=== PATIENT | female | born 1940 | race Caucasian/White ===

== ENCOUNTER → 2016-06-20 | Outpatient (REF) | payer MEDICARE ==
[~2016-06-20] MED LIST: /ALEN7SOL OR; ACET65TA OR; ALDA25TA2 OR; ALLO300T OR; CALCCHW12 OR; COLCHICINE; COLCHICINE OR; CORE12.5 OR; DARV100T OR; DEMA20TA OR; FLAG250T OR; FLAG500T OR; GENTAMYCIN IV; GLUC500T OR; HEPARIN IV; I CAPS OR; INSULANT SC; LASI40TA OR; LEVA250T OR; LISI20TA5 OR; LOTRIMIN; OMEP20TA7 OR; PAXI20TA OR; PLAV75TA2 OR; SALINE FLUSH IV; SLOWTAB OR; SYNT125T OR; VANCOMYCIN IV; VITAMIN D50000 UNT OR; [UNRECOGNIZED DRUG - OTHER]
[2016-06-20 18:29] LABS: ALBUMIN 3.6 GM/DL (3.2-5.2); ALBUMIN/GLOBULIN RATIO 1.03 (1.00-1.93); ALKALINE PHOSPHATASE 116 U/L (45-117); ALT/SGPT 19 U/L (12-78); ANION GAP 11 MEQ/L (8-16); AST/SGOT 29 U/L (15-37); BILIRUBIN,TOTAL 0.5 MG/DL (0.2-1.0); BLOOD UREA NITROGEN 16 MG/DL (7-18); CALCIUM LEVEL 8.7 MG/DL (8.8-10.2); CARBON DIOXIDE LEVEL 27 MEQ/L (21-32); CHLORIDE LEVEL 103 MEQ/L (98-107); CREATININE FOR GFR 0.95 MG/DL (0.55-1.02); GLOMERULAR FILTRATION RATE > 60.0 (>39); GLUCOSE, FASTING 143 MG/DL (83-110); POTASSIUM SERUM 3.9 MEQ/L (3.5-5.1); SODIUM LEVEL 141 MEQ/L (136-145); T UPTAKE 33 % (30-39); THYROXINE (T4) 7.4 UG/DL (4.5-12.0); TOTAL PROTEIN 7.1 GM/DL (6.4-8.2)
== END ==
LOC: M SFHCLERA 14:11
PROVIDERS: ATTEND Family Medicine
DX: I10 Essential (primary) hypertension (principal); E11.21 Type 2 diabetes mellitus with diabetic nephropathy; E03.9 Hypothyroidism, unspecified; E55.9 Vitamin D deficiency, unspecified
CPT/HCPCS: 80053; 82652; 83036; 84436; 84443; 84479; G0463

== ENCOUNTER → 2016-06-26 | Outpatient (CLI) | payer MEDICARE ==
[2016-06-26 18:09] LABS: INR 0.96
== END ==
LOC: M LRY 12:43
PROVIDERS: ATTEND Physician Assistant Surgical
DX: M19.012 Primary osteoarthritis, left shoulder (principal); Z79.01 Long term (current) use of anticoagulants

== ENCOUNTER → 2016-07-05 | Outpatient (CLI) | payer MEDICARE ==
[~2016-07-05] MED LIST changes: +CONRAY-43 43% 50ML VIAL (Q9960) As Ordered ONE; +LIDOCAINE 1% MDV 20ML VIAL As Ordered ONE
--- NOTE | 2016-07-05 10:43 | REP ---
CT ARTHROGRAM LEFT SHOULDER: CT arthrogram left shoulder performed in the axial plane, following left shoulder arthrogram procedure. Sagittal and coronal oblique reconstruction images are also performed. The injected contrast is seen in the glenohumeral joint with no communication with the subacromial or subdeltoid bursae. There is no evidence of rotator cuff tendon tear. There are moderate hypertrophic degenerative changes of the acromioclavicular joint. There is an old healed fracture of the proximal humerus. There is moderately severe spurring diffusely of the humeral head. There is moderate diffuse chondromalacia at the glenohumeral joint. There appears to be a partial tear of the superior labrum. Biceps tendon is seen inserting on to the biceps labral complex. There is diffuse significant blunting of the anterior labrum and inferior labrum suggesting prior tears. In the superior aspect of the joint, just above the superior labrum there appears to be a joint body measuring 6 mm in diameter. Incidental note is made of an oval lobulated nodular opacity in the right lung, upper lobe, measuring 10 x 5 mm. IMPRESSION: No evidence of rotator cuff tear. Old healed fracture of the proximal humerus with moderately severe spurring of the humeral head. Moderate chondromalacia at the glenohumeral joint. 6 mm superior joint body. There appears to be a partial tear of the superior labrum. There is significant blunting of the anterior labrum and the inferior labrum compatible with prior tears. Oval lobulated nodular opacity in the right lung measuring 10 x [address] of the chest with and without contrast to further evaluate. Signed by Sal Valera MD 07/05/2016 12:43 P
--- NOTE | 2016-07-07 11:47 | REP ---
LEFT SHOULDER ARTHROGRAM: The procedure was performed under the direct supervision of Dr. Valera. The benefits and risks including but not limited to pain, infection, bleeding and anaphylaxis were explained to the patient and informed consent was obtained. The left glenohumeral joint space was localized using fluoroscopic guidance. The skin was prepped and draped in a sterile fashion. 1% lidocaine was used as a local anesthetic. Using fluoroscopic guidance, a 22-gauge needle was inserted and advanced to the joint. 11 mL of Conray 43 was injected. The needle was removed and the patient was taken to CT scan for post procedural imaging. The patient tolerated the procedure well and there were immediate complications. 6 second of fluoroscopy time was utilized for this procedure. Reviewed by CLIFFORD Higginbotham 07/07/2016 12:52 PEdited and Signed by Sal Valera MD 07/07/2016 01:15 P
== END ==
LOC: M RADPRO 08:37
PROVIDERS: ATTEND Physician Assistant Surgical
DX: M94.212 Chondromalacia, left shoulder (principal); M75.82 Other shoulder lesions, left shoulder; R91.8 Other nonspecific abnormal finding of lung field; Z87.81 Personal history of (healed) traumatic fracture; M19.012 Primary osteoarthritis, left shoulder; Z88.8 Allergy status to other drugs, medicaments and biological substances; Z88.1 Allergy status to other antibiotic agents; Z88.0 Allergy status to penicillin; Z88.5 Allergy status to narcotic agent; Z88.2 Allergy status to sulfonamides
CPT/HCPCS: 23350; 73201; 77002; Q9960

== ENCOUNTER → 2016-07-19 | Outpatient (CLI) | payer MEDICARE ==
[~2016-07-19] MED LIST changes: +ALDA25TA2; +ALLO100T; +ALLO100T PO; +BUPR100T3; +BUPR50TA PO; +CALC1CAP31; +CALCD50TA; +CHLO125TA; +CHLO125TA PO; +CLOB0.0548 TOP; +CLOTR1CR TOP; -CONRAY-43 43% 50ML VIAL (Q9960) As Ordered ONE; +FLON1SPR; +FURO20TA2; +FURO20TA2 PO; +INSULANT; +LEVO150T7; -LIDOCAINE 1% MDV 20ML VIAL As Ordered ONE; +LUTECAP2 PO; +MAVI4TAB; +NITR0.4S14 SL; +OSCA200T PO; +PANT40TA2; +PANT40TA2 PO; +PARO20TA3 PO; +PLAV75TA38; +PLAV75TA38 PO; +[UNRECOGNIZED DRUG - CODE]; +[UNRECOGNIZED DRUG - CODE] PO
[2016-07-20 12:17] LABS: CALCIUM LEVEL 10.5 MG/DL (8.8-10.2); CREATININE FOR GFR 1.23 MG/DL (0.55-1.02); GLOMERULAR FILTRATION RATE 45.3 (>39)
[2016-07-20 13:09] LABS: POTASSIUM SERUM 6.9 MEQ/L (3.5-5.1)
== END ==
LOC: M LRY 16:21
PROVIDERS: ATTEND Internal Medicine Cardiovascular Disease
DX: I10 Essential (primary) hypertension (principal)

== ENCOUNTER 2016-07-21 09:49 | Observation (INO) | payer MEDICARE ==
[~2016-07-21] VITALS: Ht 157.5 cm; Wt 103.0 kg
[~2016-07-21 09:49] MED LIST changes: -ALDA25TA2; -ALLO100T; -ALLO100T PO; -BUPR100T3; -BUPR50TA PO; -CALC1CAP31; -CALCD50TA; -CHLO125TA; -CHLO125TA PO; -CLOB0.0548 TOP; -CLOTR1CR TOP; -FLON1SPR; -FURO20TA2; -FURO20TA2 PO; -INSULANT; -LEVO150T7; -LUTECAP2 PO; -MAVI4TAB; -NITR0.4S14 SL; -OSCA200T PO; -PANT40TA2; -PANT40TA2 PO; -PARO20TA3 PO; -PLAV75TA38; -PLAV75TA38 PO; -[UNRECOGNIZED DRUG - CODE]; -[UNRECOGNIZED DRUG - CODE] PO
[2016-07-21] MEDS ORDERED: BUPR100T3 (10:08)
[2016-07-21] MEDS ORDERED: PANT40TA2 (10:08)
[2016-07-21] MEDS ORDERED: [UNRECOGNIZED DRUG - CODE] (10:08)
[2016-07-21] MEDS ORDERED: LEVO150T7 (10:08)
[2016-07-21] MEDS ORDERED: PLAV75TA38 (10:08)
[2016-07-21] MEDS ORDERED: MAVI4TAB (10:08)
[2016-07-21] MEDS ORDERED: CALCD50TA (10:08)
[2016-07-21] MEDS ORDERED: CALC1CAP31 (10:08)
[2016-07-21] MEDS ORDERED: FURO20TA2 (10:08)
[2016-07-21] MEDS ORDERED: CHLO125TA (10:08)
[2016-07-21] MEDS ORDERED: ALLO100T (10:08)
[2016-07-21] MEDS ORDERED: ALDA25TA2 (10:08)
[2016-07-21] MEDS ORDERED: INSULANT (10:08)
[2016-07-21 10:42] LABS: BASO % 0.3 % (0.0-1.0); EOS # 0.1 K/mm3 (0.0-0.50); EOS % 0.9 % (0.0-3.0); LARGE UNSTAINED CELL # 0.1 K/mm3 (0.0-0.4); LARGE UNSTAINED CELL % 0.8 % (0.0-4.0); LYMPH # 2.3 K/mm3 (1.5-4.5); LYMPH % 14.8 % (24.0-44.0); MEAN CORPUSCULAR HEMOGLOBIN 29.9 pg (27.0-33.0); MEAN CORPUSCULAR HGB CONC 32.3 g/dl (32.0-36.5); MEAN CORPUSCULAR VOLUME 92.7 fl (80.0-96.0); MONO # 0.5 K/mm3 (0.0-0.8); MONO % 3.3 % (0.0-5.0); NEUTROPHILS # 11.5 K/mm3 (1.8-7.7); NEUTROPHILS % 79.8 % (36.0-66.0); PLATELET COUNT, AUTOMATED 335 k/mm3 (150-450); RED CELL DISTRIBUTION WIDTH 14.1 % (11.5-14.5); WHITE BLOOD COUNT 14.4 K/mm3 (4.0-10.0)
[2016-07-21 11:04] LABS: CALCIUM LEVEL 9.5 MG/DL (8.8-10.2); CREATININE FOR GFR 1.36 MG/DL (0.55-1.02); GLOMERULAR FILTRATION RATE 40.4 (>39); POTASSIUM SERUM 3.8 MEQ/L (3.5-5.1)
[2016-07-21] MEDS ORDERED: NS 1,000 ML IV SCH (11:45)
[2016-07-21] MEDS: NS 1,000 ML IV SCH (13:05)
[2016-07-21] MEDS ORDERED: ONDANSETRON 4MG/2ML VIAL (J2405) IV PRN (13:15)
[2016-07-21] MEDS ORDERED: ACETAMINOPHEN TAB 650MG DOSE (2X325MG) PO PRN (13:15)
--- NOTE | 2016-07-21 13:59 | REP ---
LEFT SHOULDER SERIES: Three view of the left shoulder are performed. There is an old healed fracture of the proximal humerus. Two calcific bodies are seen just above the humeral head, probably representing joint bodies, the larger of the two measuring 18 x 7 mm. There is moderate narrowing at the acromioclavicular joint with mild spurring. IMPRESSION: Old healed fracture proximal left humerus with no definite acute fracture or dislocation. Degenerative changes with what appears to be two joint bodies just above the humeral head. Signed by Sal Valera MD 07/21/2016 05:39 P
[2016-07-21 14:05] LABS: CALCIUM OXALATE CRYSTALS SMALL
[2016-07-21] MEDS ORDERED: PLAV75TA38 PO (14:52)
[2016-07-21] MEDS ORDERED: FURO20TA2 PO (14:52)
[2016-07-21] MEDS ORDERED: OSCA200T PO (14:52)
[2016-07-21] MEDS ORDERED: PARO20TA3 PO (14:52)
[2016-07-21] MEDS ORDERED: NITR0.4S14 SL (14:52)
[2016-07-21] MEDS ORDERED: ALLO100T PO (14:52)
[2016-07-21] MEDS ORDERED: BUPR50TA PO (14:52)
[2016-07-21] MEDS ORDERED: CHLO125TA PO (14:52)
[2016-07-21] MEDS ORDERED: INSULANT SC (14:52)
[2016-07-21] MEDS ORDERED: [UNRECOGNIZED DRUG - CODE] PO (14:52)
[2016-07-21] MEDS ORDERED: FLON1SPR (14:52)
[2016-07-21] MEDS ORDERED: LUTECAP2 PO (14:52)
[2016-07-21] MEDS ORDERED: PANT40TA2 PO (14:52)
[2016-07-21] MEDS ORDERED: CLOTR1CR TOP (14:52)
[2016-07-21] MEDS ORDERED: CLOB0.0548 TOP (14:52)
--- NOTE | 2016-07-21 15:41 | HPE ---
DATE OF ADMISSION: CHEESE COOKER: Dr. Farzad Allred SCRAP HOOKER: Dr. Larose INPATIENT HOSPITALIST ATTENDING: Dr. Maco Farrar CHIEF COMPLAINT: Abnormal blood test. HISTORY OF PRESENT ILLNESS: A 76-year-old female with a history of type 2 diabetes, hypertension, coronary artery disease (CAD), stent, pacemaker, ventriculoseptal defect, small, transesophageal echocardiogram (THELMA), November 2009, CAD, catheterization 1991, 75-90% right coronary artery (RCA) with collaterals, less than 50% circumflex. Nuclear stress test November 2011, no perfusion abnormalities, ejection fraction (EF) 62%, hypothyroidism, hyperlipidemia, type 2 diabetes with microalbuminuria, nephropathy, gout, hypertension, DDDR pacer/2003, replaced battery October 2009, gastroesophageal reflux disease (GERD), osteoporosis, normal DEXA scan April 2014, meralgia paresthetica, degenerative joint disease of the lumbar spine, subacute bacterial endocarditis due to enterococcus November 2009, Clostridium (C) difficile colitis November 2009, acute renal failure on chronic kidney disease, stage III, secondary to vancomycin, gentamicin, and diuretics, adenomatous colonic polyp, urine incontinence, suspected obstructive sleep apnea with abnormal nocturnal oxymetry December 2012, 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 Zayas, radical vulvectomy May [address] Moncada. Was sent to the emergency room by Dr. Allred due to abnormal blood tests. She was found to have a potassium of 6.9, GFR 45.3. In the emergency room (ER) she was found to have lactic acidosis with lactic acid of 4.0 and white count of 14.4. Patient otherwise denies any dysuria, urgency, frequency, cough, fever, chills, shortness of breath, cough productive of sputum. Denies any vaginal discharge, diarrhea, constipation. She has chronic fungal infection in the genital area. Otherwise has been in her usual state of health. Patient had a recent injection of steroids to the left shoulder due to severe osteoarthritis on Sunday. States that has felt significantly improved. Able to rotate at the shoulder, flex, extend, abduct without much difficulty and no fevers or chills at home. Hospitalist service was called to admit for observation for evaluation of her lactic acidosis. PAST MEDICAL HISTORY: 1. Small ventriculoseptal defect, transesophageal echocardiogram (THELMA), November 2009, 2. CAD. Catheterization in 1991. 75-95% RCA with collaterals, less than 50% circumflex. Non-stress test November 2011: No perfusion abnormalities. EF 62%. 3. Hypothyroidism. 4. Type 2 diabetes with microalbuminuria. 5. Nephropathy. 6. Hyperlipidemia. 7. Gout. 8. Hypertension. 9. DDDR pacer/2003, replaced battery October 2009. 10. GERD. 11. Osteopenia. Normal DEXA April 2014. 12. Meralgia paresthetica. 13. Degenerative disc disease (DDD, lumbar spine. 14. Subacute bacterial endocarditis due to enterococcus November 2009. 15. C. difficile colitis November 2009. 16. Chronic kidney disease, stage III, with acute renal failure for vancomycin, gentamicin, diuretics November 2009. 17. Colon polyps with adenoma November 2011. 18. Urine incontinence. 19. CKD, stage III. 20. Suspected obstructive sleep apnea (ABBE) with abnormal nocturnal oxymetry December 2012. 21. Vulvar squamous cell CA secondary to Lichen sclerosus. 22. Macular degeneration, [facility], Dr. Zayas. 23. Radical vulvectomy [address] Moncada. ALLERGIES: GENTAMICIN, acute renal failure. VANCOMYCIN, acute renal failure, BIAXIN, hives. PENICILLIN, hives. NONSTEROIDAL ANTI-INFLAMMATORY DRUGS (NSAIDS), ASPIRIN, hives. MEVACOR, ZOCOR, shortness of breath and vertigo. CODEINE, confusion. SULFA, hives. AVELOX, tremors, constipation. ASPIRIN, anaphylaxis. PAST SURGICAL HISTORY: 1. Hysterectomy in 1979. 2. Cholecystectomy, 1969. 3. Appendectomy. 4. Bilateral cataract surgery. 5. Pacemaker July 2003. 6. Adenomatous polyp 2011. 7. December 2013, vulvar cancer resection, Dr. Mnocada, November 2011. 8. Right atrial pacer lead replaced, [facility], December 2012. 9. Colonoscopy 2013. FAMILY HISTORY: Father at 72, Alzheimer's. Mother at 70, CAD. Siblings: Diabetes, hypertension. Daughter , esophageal cancer. SOCIAL HISTORY: Lives alone. Former smoker. Quit in 2002. Previously smoked a pack a day. Social alcohol use. Occasional wine. 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 One dog. Has a son in [place] who assists in her activities of daily living. HOME MEDICATIONS: - Chlorthalidone 25 mg half tablet daily - spironolactone 25 mg half tablet daily - Wellbutrin 100 mg at bedtime - Calcitriol 0.25 Sunday, Sunday, Sunday - nitroglycerine 0.4 as needed - trandolapril 4 mg half tablet daily - Refresh 0.5% both eyes as needed - Plavix 75 daily - allopurinol 100 daily - Colchicine 0.6 daily - clobetasol 0.05 as needed - I-Caps daily - cinnamon 500 twice a day - levothyroxine 50 mcg daily - paroxetine 40 daily - Lasix 20 twice a day, 7 a.m., 4 p.m. - Protonix 40 daily - Lantus insulin 14 units at bedtime - calcium/vitamin D 600 one tablet twice a day - Tylenol 650 twice a day as needed REVIEW OF SYSTEMS: Per history of present illness (HPI). A 12-point system otherwise negative. PHYSICAL EXAMINATION: VITAL SIGNS: Temperature 99.7, pulse 108, sinus rhythm, respiratory rate 18, blood pressure 182/88, 93% on room air. GENERAL: Patient is awake, alert, oriented times three, answering questions appropriately. HEENT Anicteric sclerae. No jaundice or icterus. Missing teeth in the upper jaw. Poor dentition. Moist mucous membranes. No jugular venous distention (JVD), thyromegaly. LUNGS: Clear to auscultation. No wheezes, rales, or rhonchi. HEART: S1, S2, sinus tachycardia. ABDOMEN: Soft, obese, nontender, nondistended, positive bowel sounds. Patient has whitish discoloration around the groin, malodorous, whitish discharge, erythematous area in the medial thigh. EXTREMITIES: No pitting edema. Left shoulder: Full range of motion. No effusion, erythema, or tenderness. White count 14.4, hemoglobin 16, hematocrit 49, platelet count 335, 79% neutrophils. Sodium 133, potassium 3.8, chloride 91, bicarbonate 29, BUN 39, creatinine 1.36, glucose 230, lactic acid 4.0, calcium 9.5, magnesium 2.9. Total CK 105, MB fraction 3.9, troponin less than 0.02. C-reactive protein 6.67. Urine culture on July 21 pending. IMAGING STUDIES: Chest x-ray: No active disease. Cardiomegaly. Pacemaker. Shoulder x-ray in the left: Old healed fracture of proximal left humerus, degenerative disc disease. No acute fracture or dislocation. ASSESSMENT AND PLAN: This is a 76-year-old female with a history of chronic kidney disease, stage III, coronary artery disease (CAD), pacemaker, degenerative joint disease, hypertension, small ventriculoseptal defect, hypothyroidism, hyperlipidemia, gout, reflux, meralgia paresthetica, subacute endocarditis due to enterococcus, Clostridium (C) difficile colitis, acute on chronic colonic adenomatous polyp, urine incontinence, suspected obstructive sleep apnea (ABBE), vulvar squamous cell carcinoma (CA) secondary to Lichen sclerosis, macular degeneration, follow with [facility], Dr. Zayas, radical vulvectomy in 2016, presented to the emergency room due to abnormal blood tests. Patient was found to have a potassium of 6.9 as outpatient and was found to have lactic acidosis of 4.0. Patient is admitted for observation under hospitalist service for evaluation of lactic acidosis. IMPRESSION: 1. Lactic acidosis, rule out acute infection. Patient had a recent instrumentation of the left shoulder with intra-articular steroids. X-ray is unremarkable. Sedimentation rate is normal. C-reactive protein (CRP) slightly elevated. Will continue to monitor for now for symptoms of pain and effusion. Examination is unremarkable at this time. Check urinalysis (UA), urine, culture and sensitivity (C and S), two sets of blood cultures. No empirical antibiotics. Hold the patient's diuretics and continue with intravenous (IV) fluid hydration times two liters gently with 75 mL per hour. Recheck lactic acid serially. 2. Chronic kidney disease, stage III, currently at baseline. 3. Hyperkalemia, resolved. Holding off on patient's spironolactone and angiotensin-converting enzyme (FILOMENA) inhibitor, trandolapril. 4. History of CAD. Continue on Plavix. Previously allergy to aspirin. 5. Type 2 diabetes. Continue consistent-carbohydrate diet. Renal diet. Continue on Lantus insulin. Change to Levemir 25 units at bedtime and obtain an A1c level. Insulin sliding scale with coverage and hypoglycemic protocol. 6. Small ventriculoseptal defect on previous transesophageal echocardiogram (THELMA) November 2009. 7. Chronic hypothyroidism. Continue home dose of Synthroid. 8. Hyperlipidemia, stable. Currently not taking Crestor. 9. History of vulvar squamous cell CA with fungal infection, topical cream. 10. History of pacemaker, stable. Currently with tachycardia. Trial of IV fluids, gentle hydration 75 mL an hour. 11. History of adenomatous colonic polyps. No complaints of bowel changes. 12. Macular degeneration. Outpatient followup with Dr. Zayas at [facility]. 13. Chronic kidney disease, at baseline. Avoid nephrotoxins. Renally dose all medications. 14. History of chronic degenerative disc disease, osteopenia, and meralgia paresthetica. Stable. 15. Microalbuminuria and nephropathy, chronic. Outpatient followup with nephrology. 16. Hypothyroidism. Resume home dose of Synthroid. 17. Gout. Continue allopurinol. 18. Deep vein thrombosis (DVT) prophylaxis with renal dosing of Lovenox.
[2016-07-21 15:45] VITALS: BP 131/67
[2016-07-21] MEDS: HumaLOG INSULIN (NovoLOG) PER UNIT SC SCH (17:58)
[2016-07-21] MEDS ORDERED: GLUCOSE 4 GM CHEW TABLET PO PRN (18:00)
[2016-07-21] MEDS ORDERED: DEXTROSE 50% 50 ML SYRINGE IV PRN (18:00)
[2016-07-21] MEDS ORDERED: GLUCAGON FOR INJ 1 MG VIAL (J1610) SC PRN (18:00)
[2016-07-21 20:55] VITALS: BP 139/78
[2016-07-21] MEDS ORDERED: HumaLOG INSULIN (NovoLOG) PER UNIT SC SCH (21:00)
[2016-07-21] MEDS ORDERED: MICONAZOLE 2 % POWDER (DESENEX) TOP SCH (21:00)
[2016-07-21] MEDS: NYSTATIN 100,000 UNITS/GM TOPICAL PWD 15 GM TOP SCH (21:19)
[2016-07-22] MEDS: NS 1,000 ML IV SCH (05:20)
[2016-07-22 06:05] LABS: BASO % 0.4 % (0.0-1.0); EOS # 0.1 K/mm3 (0.0-0.50); EOS % 1.3 % (0.0-3.0); LARGE UNSTAINED CELL # 0.2 K/mm3 (0.0-0.4); LARGE UNSTAINED CELL % 1.6 % (0.0-4.0); LYMPH % 27.4 % (24.0-44.0); MEAN CORPUSCULAR HEMOGLOBIN 29.6 pg (27.0-33.0); MEAN CORPUSCULAR HGB CONC 31.6 g/dl (32.0-36.5); MEAN CORPUSCULAR VOLUME 93.4 fl (80.0-96.0); MONO # 0.6 K/mm3 (0.0-0.8); NEUTROPHILS # 6.7 K/mm3 (1.8-7.7); NEUTROPHILS % 63.4 % (36.0-66.0); PLATELET COUNT, AUTOMATED 260 k/mm3 (150-450); RED CELL DISTRIBUTION WIDTH 14.1 % (11.5-14.5); WHITE BLOOD COUNT 10.5 K/mm3 (4.0-10.0)
[2016-07-22 06:14] LABS: CALCIUM LEVEL 9.3 MG/DL (8.8-10.2); CREATININE FOR GFR 1.04 MG/DL (0.55-1.02); POTASSIUM SERUM 3.7 MEQ/L (3.5-5.1)
[2016-07-22 06:15] VITALS: BP 155/88
[2016-07-22 06:43] LABS: ERYTHROCYTE SEDIMENTATION RATE 10 mm/hr (0-30)
[2016-07-22] MEDS: NYSTATIN 100,000 UNITS/GM TOPICAL PWD 15 GM TOP SCH (08:15)
[2016-07-22] MEDS: HumaLOG INSULIN (NovoLOG) PER UNIT SC SCH ×2 (08:15→12:35)
--- NOTE | 2016-07-22 08:27 | ECGEPIP ---
Stationary ECG Study [facility] - ED Test Date: 2016-07-21 Pat Name: JOSE M FRAUSTO Department: Room: - Gender: F Plating Inspector: johana : 1940 Requested By: JOSEFA Maza Order Number: [id number] Reading MD: Monica Rosenberg Measurements Intervals [place] Rate: 106 P: -27 IA: 166 QRS: 217 QRSD: 172 T: 3 QT: 348 QTc: 462 Interpretive Statements SINUS TACHYCARDIA LEFT ATRIAL ENLARGEMENT MARKED RIGHT AXIS DEVIATION RIGHT BUNDLE BRANCH BLOCK INFERIOR MYOCARDIAL INFARCTION, OF INDETERMINATE AGE, CLINICAL CORRELATION ANTEROSEPTAL MYOCARDIAL INFARCTION, OF INDETERMINATE AGE, CLINICAL CORRELATION COMPARISON 10/12/11 Electronically Signed On 07-22-2016 8:27:01 EDT by Monica Rosenberg
--- NOTE | 2016-07-22 08:27 | ECGEPIP ---
Stationary ECG Study [facility] - ED Test Date: 2016-07-21 Pat Name: JOSE M FRAUSTO Department: Room: - Gender: F Call Out Operator: rn : 1940 Requested By: JOSEFA Maza Order Number: [id number] Reading MD: Monica Rosenberg Measurements Intervals [place] Rate: 105 P: 233 CT: 168 QRS: 210 QRSD: 161 T: 3 QT: 340 QTc: 451 Interpretive Statements SINUS TACHYCARDIA POSSIBLE LEFT ATRIAL ENLARGEMENT MARKED RIGHT AXIS DEVIATION RIGHT BUNDLE BRANCH BLOCK INFERIOR MYOCARDIAL INFARCTION, OF INDETERMINATE AGE ANTEROSEPTAL MYOCARDIAL INFARCTION, OF INDETERMINATE AGE CLINICAL CORRELATION SIMILAR 10:46 Electronically Signed On 07-22-2016 8:27:33 EDT by Monica Rosenberg
[2016-07-22] MEDS ORDERED: buPROPion 100 MG TAB PO SCH (09:00)
[2016-07-22] MEDS ORDERED: CLOPIDOGREL 75 MG TAB PO SCH (09:00)
[2016-07-22] MEDS ORDERED: ALLOPURINOL 100 MG TAB PO SCH (09:00)
[2016-07-22] MEDS ORDERED: PARoxetine 20 MG TAB PO SCH (09:00)
[2016-07-22] MEDS ORDERED: PANTOPRAZOLE 40MG TAB (PROTONIX) PO SCH (09:00)
--- NOTE | 2016-07-22 11:53 | DS.PDOC ---
Discharge Summary General Date of Admission Jul 21, 2016 at 13:05 Date of Discharge Jul 22, 2016 Discharge Summary PROCEDURES PERFORMED DURING STAY: [None]. DISCHARGE DIAGNOSES: 1. Hyperkalemia. 2. Lactic acidosis 3. VSD Refer to H&P from yesterday for full extensive medical history CHIEF COMPLAINT: Lactic Acidosis. HOSPITAL COURSE: Patient admitted for lactic acidosis, sent by pediatric rn for hyperkalemia. Lactic acidosis resolved, cultures negative to date, no obvious source/signs/symptoms of infection. As per documentation patient taking aldactone and ACI at home, although not appearing in medication reconciliation. These medications have been discontinued pending further evaluation by her PCP and film coater. DISCHARGE MEDICATIONS: Continue home medications, stop spironolactone and trandolapril. ALLERGIES: Please see below. PHYSICAL EXAMINATION ON DISCHARGE: VITAL SIGNS: Please see below. GENERAL: NAD HEENT: NC/AT, EOMI, PERRL, edentulous NECK: supple CARDIOVASCULAR EXAMINATION: +S1S2, RRR RESPIRATORY EXAMINATION: CTA B/L ABDOMINAL EXAMINATION: soft, NT, +BS EXTREMITIES: no edema NEUROLOGICAL EXAMINATION: no gross focal deficits PSYCHIATRIC EXAMINATION: AAOx3 LABORATORY DATA: Please see below. ACTIVITY: [As tolerated]. DIET: low fat low cholesterol 2 gram sodium carb consistent DISCHARGE INSTRUCTIONS: 1. FOllow up with PCP in 3-5 days. 2. Follow up with nephrology Dr. Larose in 3-5 days. ITEMS TO FOLLOWUP ON ON OUTPATIENT: 1. Repeat potassium on follow up with medical provider. DISCHARGE CONDITION: [Stable]. TIME SPENT ON DISCHARGE: Less than 30 minutes. Vital Signs/I&Os Vital Signs Date Time Temp Pulse Resp B/P Pulse Ox O2 Delivery O2 Flow Rate FiO2 07/22/16 06:15 97.7 90 18 155/88 96 Room Air I&O- Last 24 Hours up to 6 AM 07/22/16 06:00 Intake Total 1623 ml Output Total 700 ml Balance 923 ml Laboratory Data Labs 24H Laboratory Tests 2 07/21/16 11:54: Urine Amorphous Sediment , Urine Appearance HAZY, Urine Color YELLOW, Urine pH 6.0, Urine Specific [place] 1.009, Urine Protein NEGATIVE, Urine Glucose (UA) NEGATIVE, Urine Ketones NEGATIVE, Urine Urobilinogen 0.2, Urine Bilirubin NEGATIVE, Urine Leukocyte Esterase 3+H, Urine Bacteria (Auto) NEGATIVE, Urine Blood NEGATIVE, Urine Calcium Carbonate Cryst(Auto) , Urine Calcium Oxalate Cryst (Auto) SMALL, Urine Calcium Phosphate Casandra (Auto) , Urine Cellular Casts , Urine Cystine Crystals , Urine Granular Casts (Auto) , Urine Hyaline Casts ( Auto) 4, Urine Leucine Crystals , Urine Mucus (Auto) SMALL, Urine Nitrite NEGATIVE, Urine Oval Fat Bodies (Auto) , Urine RBC (Auto) 2, Urine Renal Epithelial Cells , Urine Sperm (Auto) , Urine Squamous Epithelial Cells 1, Urine Transitional Epithelial Cells , Urine Trichomonas (Auto) , Urine Triple Phosphate Cryst (Auto) , Urine Tyrosine Crystals , Urine Uric Acid Crystals ( Auto) , Urine WBC (Auto) 14H, Urine Waxy Casts (Auto) , Urine Yeast-Like Cells ( Auto) 07/21/16 16:53: Bedside Glucose (Misc Panel) 221H 07/21/16 18:15: Creatine Kinase MB 3.0, Creatine Kinase MB Relative Index 3.03, Lactic Acid Level 2.5*H, Total Creatine Kinase 99, Troponin I < 0.02 07/21/16 20:57: Bedside Glucose (Misc Panel) 197H 07/21/16 22:44: Lactic Acid Followup at 4 Hours 1.0 07/22/16 05:47: Anion Gap 8, White Blood Count 10.5H, Red Blood Count 4.97, Hemoglobin 14.7, Hematocrit 46.4, Mean Corpuscular Volume 93.4, Mean Corpuscular Hemoglobin 29.6 , Mean Corpuscular Hemoglobin Concent 31.6L, Red Cell Distribution Width 14.1, Platelet Count 260, Neutrophils (%) (Auto) 63.4, Lymphocytes (%) (Auto) 27.4, Monocytes (%) (Auto) 6.0H, Eosinophils (%) (Auto) 1.3, Basophils (%) (Auto) 0.4 , Neutrophils # (Auto) 6.7, Lymphocytes # (Auto) 3.0, Monocytes # (Auto) 0.6, Eosinophils # (Auto) 0.1, Basophils # (Auto) 0.0, C-Reactive Protein, Quantitative 2.25H, Blood Urea Nitrogen 34H, Creatinine 1.04H, Sodium Level 134L , Potassium Level 3.7, Chloride Level 98, Carbon Dioxide Level 28, Calcium Level 9.3, Erythrocyte Sedimentation Rate 10, Glomerular Filtration Rate 55.0, Large Unclassified Cells # 0.2, Large Unclassified Cells % 1.6 CBC/BMP Laboratory Tests 07/22/16 05:47 Calcium Level 9.3, Red Blood Count 4.97, Mean Corpuscular Volume 93.4, Mean Corpuscular Hemoglobin 29.6, Mean Corpuscular Hemoglobin Concent 31.6 L, Red Cell Distribution Width 14.1, Neutrophils (%) (Auto) 63.4, Lymphocytes (%) (Auto ) 27.4, Monocytes (%) (Auto) 6.0 H, Eosinophils (%) (Auto) 1.3, Basophils (%) ( Auto) 0.4, Neutrophils # (Auto) 6.7, Lymphocytes # (Auto) 3.0, Monocytes # (Auto ) 0.6, Eosinophils # (Auto) 0.1, Basophils # (Auto) 0.0 FSBS Laboratory Tests Test 07/21/16 16:53 07/21/16 20:57 Range/Units Bedside Glucose (Misc Panel) 221 197 83-110 MG/DL Microbiology Microbiology 07/21/16 Blood Culture, Received Pending 07/21/16 Urine Culture, Received Pending Discharge Medications Scheduled (Flonase Allergy Relief) 50 Mcg/Act Spr 50 MCG NA DAILY (Reported) (Lutein Vision Blend) 1 Cap Cap 2 CAP PO BID (Reported) Allopurinol (Allopurinol) 100 Mg Tab 100 MG PO DAILY (Reported) Bupropion HCl (Bupropion HCl) 50 Mg Halftab 100 MG PO DAILY (Reported) Calcium/Vitamin D (Oscal 500/200 D-3 500-200 mg-Unit) 1 Tab Tab 1 TAB PO BID ( Reported) Chlorthalidone (Chlorthalidone) 12.5 Mg Halftab 12.5 MG PO DAILY (Reported) Clopidogrel Bisulfate (Plavix) 75 Mg Tab 75 MG PO DAILY (Reported) Furosemide (Furosemide) 20 Mg Tab 20 MG PO BID (Reported) Insulin Glargine (Lantus) 1 Units/0.01 Ml Susp 25 UNITS SC QHS (Reported) Levothyroxine Sodium (Unithroid Direct) 150 Mcg Tab 150 MCG PO ACB (Reported) Nitroglycerin (Nitroglycerin) 0.4 Mg Sub 0.4 MG SL NITRO (Reported) Pantoprazole Sodium (Pantoprazole Sodium) 40 Mg Tab 40 MG PO DAILY (Reported) Paroxetine (Paroxetine HCl) 20 Mg Tab 20 MG PO DAILY (Reported) Scheduled PRN Clobetasol Propionate (Clobetasol Propionate E) 0.05 % Cre 1 DOSE TOP BIDP PRN PRN SEE LABEL COMMENTS (Reported) per patient md wants her to apply around the vulva daily Clotrimazole (Clotrimazole) 1 % Cre 1 % TOP BIDP PRN PRN SEE LABEL COMMENTS ( Reported) per patient md wants her to apply around the vulva daily Allergies Coded Allergies: Clarithromycin (Verified Allergy, Severe, THROAT SWELLING, 07/21/16) Aspirin (Verified Allergy, Intermediate, HIVES, 07/21/16) Penicillins (Verified Allergy, Intermediate, HIVES, 07/21/16) Penicillins Cross Reactors (Verified Allergy, Intermediate, HIVES, 07/21/16) Sulfa Drugs (Verified Allergy, Intermediate, MOUTH RASH, 07/21/16) Sulfa Drugs Cross Reactors (Verified Allergy, Intermediate, MOUTH RASH, 07/21/16) Codeine (Verified Adverse Reaction, Mild, VOMITING, 07/21/16) HARRIS LAMBERT MD Jul 22, 2016 11:53
[2016-07-24] MEDS ORDERED: CALCITRIOL 0.25 MCG CAP (S0169) PO SCH (09:00)
--- NOTE | 2016-07-24 10:15 | REP ---
PORTABLE CHEST: AP portable view of the chest is performed and compared to a prior study of 10/12/2011. There is cardiomegaly. There is no acute infiltrate. There is mild bibasilar fibrotic scarring which is stable. There is mild calcification of the thoracic aorta. The mediastinal silhouette is unchanged. Left dual lead pacemaker is again noted. IMPRESSION: Cardiomegaly. No acute infiltrate or pulmonary edema. Signed by Sal Valera MD 07/24/2016 04:34 P
== END 2016-07-22 13:56 | disposition home or self-care (01) ==
LOC: M ED 10:22 → M ED INP 13:05 → M MSPAV 15:41
PROVIDERS: ADMIT General Practice; ATTEND Internal Medicine
DX: E87.5 Hyperkalemia (principal); E87.2 Acidosis; E11.21 Type 2 diabetes mellitus with diabetic nephropathy; Z79.4 Long term (current) use of insulin; I10 Essential (primary) hypertension; I25.10 Atherosclerotic heart disease of native coronary artery without angina pectoris; G47.30 Sleep apnea, unspecified; Q21.0 Ventricular septal defect; M10.9 Gout, unspecified; E03.9 Hypothyroidism, unspecified; E78.5 Hyperlipidemia, unspecified; K21.9 Gastro-esophageal reflux disease without esophagitis; Z87.891 Personal history of nicotine dependence; N18.3 Chronic kidney disease, stage 3 (moderate); Z79.899 Other long term (current) drug therapy; Z98.61 Coronary angioplasty status; Z88.0 Allergy status to penicillin; Z88.1 Allergy status to other antibiotic agents; Z88.3 Allergy status to other anti-infective agents; Z88.8 Allergy status to other drugs, medicaments and biological substances
CPT/HCPCS: 36415; 71010; 73030; 80048; 81001; 82550; 82553; 83605; 83735; 84484; 85025; 85652; 86140; 87040; 87088; 87186; 93005; 93041; 99285; G0378

== ENCOUNTER → 2016-07-27 | Outpatient (CLI) | payer MEDICARE ==
[~2016-07-27] MED LIST changes: +ALDA25TA2; +ALLO100T; +ALLO100T PO; +BUPR100T3; +BUPR50TA PO; +CALC1CAP31; +CALCD50TA; +CHLO125TA; +CHLO125TA PO; +CLOB0.0548 TOP; +CLOTR1CR TOP; +DOXY-278 PO; +FLON1SPR; +FURO20TA2; +FURO20TA2 PO; +INSULANT; +LEVO150T7; +LUTECAP2 PO; +MAVI4TAB; +NITR0.4S14 SL; +NYST100024 TOP; +OSCA200T PO; +PANT40TA2; +PANT40TA2 PO; +PARO20TA3 PO; +PLAV75TA38; +PLAV75TA38 PO; +[UNRECOGNIZED DRUG - CODE]; +[UNRECOGNIZED DRUG - CODE] PO
--- NOTE | 2016-07-27 15:22 | REPMRS ---
Patient History The patient states she has not had a clinical breast exam in over a year. Patient is postmenopausal and has history of other cancer at age 40. Family history of ovarian cancer in mother. Digital Woman Screen Mammo: July 27, 2016 - Exam #: [id number] Bilateral CC and MLO view(s) were taken. Technologist: Aracely Nicole Technologist Prior study comparison: December 18, 2014, digital woman screen mammo performed at [facility] to [facility]. December 17, 2013, digital woman screen mammo performed at [facility] to [facility]. FINDINGS: There are scattered fibroglandular densities. There has been no change in the appearance of the mammogram from the prior studies. There is a mild amount of residual fibroglandular tissue which is fairly symmetric. There is no interval development of dominant mass, architectural distortion, or clustered microcalcification suggestive of malignancy. ASSESSMENT: BI-RADS/ACR category 1 mammogram. Negative. Recommendation Routine screening mammogram in 1 year (for women over age 40). This mammogram was interpreted with the aid of an FDA-approved computer-aided dectection system. Electronically Signed By: Sal Valera MD 07/27/16 [id number]
== END ==
LOC: M WHC 14:20
PROVIDERS: ATTEND Family Medicine
DX: Z12.31 Encounter for screening mammogram for malignant neoplasm of breast (principal)

== ENCOUNTER 2016-07-28 17:07 | Inpatient (IN) | payer MEDICARE ==
[~2016-07-28] VITALS: Ht 157.5 cm; Wt 88.6 kg
[~2016-07-28 17:07] MED LIST changes: -DOXY-278 PO; -NYST100024 TOP
[2016-07-28] MEDS ORDERED: NS 500 ML IV ONE (18:30)
[2016-07-28 18:56] LABS: BASO % 0.2 % (0.0-1.0); EOS # 0.2 K/mm3 (0.0-0.50); EOS % 1.1 % (0.0-3.0); LARGE UNSTAINED CELL # 0.1 K/mm3 (0.0-0.4); LARGE UNSTAINED CELL % 0.5 % (0.0-4.0); LYMPH # 1.9 K/mm3 (1.5-4.5); LYMPH % 10.9 % (24.0-44.0); MEAN CORPUSCULAR HEMOGLOBIN 29.9 pg (27.0-33.0); MEAN CORPUSCULAR VOLUME 90.7 fl (80.0-96.0); MONO # 0.7 K/mm3 (0.0-0.8); MONO % 4.4 % (0.0-5.0); NEUTROPHILS # 13.5 K/mm3 (1.8-7.7); NEUTROPHILS % 82.9 % (36.0-66.0); PLATELET COUNT, AUTOMATED 311 k/mm3 (150-450); RED CELL DISTRIBUTION WIDTH 13.9 % (11.5-14.5); WHITE BLOOD COUNT 16.3 K/mm3 (4.0-10.0)
[2016-07-28 19:10] LABS: ERYTHROCYTE SEDIMENTATION RATE 25 mm/hr (0-30)
[2016-07-28 19:25] LABS: ALBUMIN 3.5 GM/DL (3.2-5.2); ALKALINE PHOSPHATASE 120 U/L (45-117); ALT/SGPT 33 U/L (12-78); ANION GAP 11 MEQ/L (8-16); AST/SGOT 31 U/L (15-37); BILIRUBIN,DIRECT 0.1 MG/DL (0.0-0.2); BILIRUBIN,TOTAL 0.5 MG/DL (0.2-1.0); BLOOD UREA NITROGEN 33 MG/DL (7-18); CALCIUM LEVEL 9.2 MG/DL (8.8-10.2); CARBON DIOXIDE LEVEL 26 MEQ/L (21-32); CHLORIDE LEVEL 98 MEQ/L (98-107); CREATININE FOR GFR 1.21 MG/DL (0.55-1.02); GLOMERULAR FILTRATION RATE 46.2 (>39); GLUCOSE, FASTING 218 MG/DL (83-110); POTASSIUM SERUM 3.3 MEQ/L (3.5-5.1); SODIUM LEVEL 135 MEQ/L (136-145)
[2016-07-28] MEDS ORDERED: POTASSIUM CHLORIDE 10 MEQ SR TABLET PO ONE (20:00)
[2016-07-28 21:02] LABS: MAGNESIUM LEVEL 1.8 MG/DL (1.8-2.4)
[2016-07-28] MEDS ORDERED: CEFTAROLINE FOSAMIL 200 MG in D5W 50 ML IV SCH (21:30)
[2016-07-28] MEDS ORDERED: SODIUM CHLORIDE 0.9% 1000 ML IV ONE (21:45)
[2016-07-28] MEDS ORDERED: GLUCAGON FOR INJ 1 MG VIAL (J1610) SC PRN (22:00)
[2016-07-28] MEDS ORDERED: CLOTRIMAZOLE 1% TOPICAL CREAM 30GM TOP PRN (22:00)
[2016-07-28] MEDS ORDERED: DEXTROSE 50% 50 ML SYRINGE IV PRN (22:00)
[2016-07-28] MEDS ORDERED: CLOBETASOL PROPIONATE EMOLLIENT 0.05% CR 60 GM TOP PRN (22:00)
[2016-07-28] MEDS ORDERED: GLUCOSE 4 GM CHEW TABLET PO PRN (22:00)
[2016-07-28] MEDS ORDERED: ISOVUE-370 76% 100ML VIAL (Q9967) As Ordered ONE (22:41)
--- NOTE | 2016-07-28 23:10 | REPUSA ---
CT of the chest Clinical statement: pulmonary nodule. Technique: Multiple axial CT images were obtained from the thoracic inlet through the upper abdomen b efore and after a bolus administration of nonionic intravenous contrast. Coronal and sagittal reconst ructions were also obtained. No comparison is available. Findings: The pulmonary arteries are well-opacified with contrast, with no intraluminal filling defec ts to suggest embolism. The thoracic aorta is unremarkable. Thyroid gland is within normal limits. Th ere is no thoracic lymphadenopathy. There are no pericardial or pleural effusions. The lungs are deanna r. There is a benign calcified granuloma in the anterior right upper lobe. There is minimal scarring in the lateral left lower lobe. Emphysematous bleb is seen in the superior segment of the left lower lobe. There is a large hiatal hernia. Limited imaging of the upper abdomen is unremarkable. There are no suspicious osseous lesions. Impression: 1. No acute infiltrates. No clinically significant pulmonary nodules. 2. Minimal scarring in the left lower lobe. Emphysematous bleb in the left lower lobe. 3. Large hiatal hernia.
[2016-07-29] VITALS (9 sets, daily range): BP systolic 129–159; BP diastolic 68–80
[2016-07-29] MEDS: LEVEMIR (INSULIN DETEMIR) 1 UNITS/0.01ML SC SCH ×2 (01:06→20:14)
[2016-07-29] MEDS: NYSTATIN 100,000 UNITS/GM TOPICAL PWD 15 GM TOP SCH ×3 (01:14→20:14)
[2016-07-29] MEDS: CEFTAROLINE FOSAMIL 400 MG in D5W MINI-BAG PLUS 50 ML IV SCH ×2 (01:15→12:29)
--- NOTE | 2016-07-29 03:20 | HPE ---
DATE OF ADMISSION: 07/28/2016 SUBJECTIVE: This is a 76-year-old female with history of sick sinus syndrome status post pacemaker, suspected obstructive sleep apnea (ABBE), vulvar cancer status post surgery, who was sent in from primary care provider's (PCP's) office for abnormal lactic acid level 5.6 and persistent leukocytosis 14.8 earlier today. The patient was recently admitted and discharged from 07/21-07/22 also for lactic acidosis and hyperkalemia. At that time, no source of infection was identified and her leukocytosis improved. Since discharge, states that she is still "beat and tired all the time." States that at baseline she has had shortness of breath for approximately 20, 30 years, but in the last 2 weeks noticed that her shortness of breath worsened with walking. Normally is able to walk from her house to the mailbox which is probably more than 100 feet without shortness of breath, but in the last 2 weeks noticed that she would get winded doing the same amount of distance. Symptoms will resolve immediately with rest. Denies any chest pain, palpitations, chest discomfort or paroxysmal nocturnal dyspnea, pillow orthopnea, leg swelling. Actually endorses 7-pound weight loss due to being healthier with her diet. Denies cough, fevers, chills, night sweats. Does endorse feeling weak, lightheadedness, but no syncopal episode. She is unable to recall the last time she felt lightheadedness. Of note, the patient was previously planned for a stress test this week with cardiology; however, the patient and her friend decided to not pursue with the stress test because she claimed that she recently had a steroid injection to her left arm last week and does not want more medication injected into her body. In the emergency department (ED), was given 500 mL bolus, potassium chloride times one. PAST MEDICAL HISTORY: 1. Sick sinus syndrome status post pacemaker. 2. Murmur secondary to moderate/severe tricuspid regurgitation. 3. Suspected ABBE, though the patient declined further workup because states that her dog would likely not allow her to keep the mask on her face and states that when she gets apneic during her events her dog always wakes her up from the event. 4. Type 2 diabetes. 5. Diabetic nephropathy. 6. Vulvar malignancy. 7. Chronic kidney disease (CKD) stage III. 8. Hypothyroidism. 9. Gout. 10. Hypercholesterolemia. 11. Vitamin D deficiency. 12. Depression. 13. Obesity. 14. Ventriculoseptal defect. 15. Hypertensive heart disease. 16. Coronary artery disease (CAD), nonobstructive. 17. Diastolic congestive heart failure. Echocardiogram from October 2014 showed mild degenerative changes of mitral and aortic valvular apparatus without functional valvular abnormality. Mild concentric left ventricular hypertrophy (LVH) with hyperkinetic wall motion. Inferior vena cava (IVC) size with slightly reduced collapse suggestive of mild elevated CVP. Right heart chamber sizes and estimated pulmonary artery pressure increased. 18. Gastroesophageal reflux disease (GERD). 19. Osteopenia. 20. Degenerative disc disease. 21. Clostridium (C) difficile colitis. 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 23. Urinary incontinence. 24. Macular degeneration. PAST SURGICAL HISTORY: 1. Pacemaker implant, [employer] dual chamber. 2. Appendectomy. 3. Cholecystectomy. 4. Total hysterectomy. 5. Cataract surgery. 6. Toe surgery. 7. Cardiac catheterization. 8. Colonoscopy. 9. Vulvar cancer resection with Dr. Henao. HOME MEDICATIONS: - allopurinol 100 mg by mouth daily - Wellbutrin 100 mg by mouth daily - [place] 500/200 one tablet by mouth twice a day - chlorthalidone 12.5 mg by mouth daily - clobetasol one dose topically twice a day as needed - Plavix 75 mg by mouth daily - clotrimazole 1% topically twice a day - Flonase 50 mcg inhaled daily - Lasix 20 mg by mouth daily - Lantus 25 units subcutaneously nightly - lutein vision blend two capsules twice a day - nitroglycerin 0.4 sublingually as needed - Protonix 40 mg by mouth daily - Paxil 20 mg by mouth daily - calcitriol 0.25 mcg Sunday-Sunday ALLERGIES: CLARITHROMYCIN, throat swelling; ASPIRIN, hives; PENICILLIN, hives; SULFA, mouth thrush; CODEINE, vomiting. FAMILY HISTORY: Mother from heart disease in her 70s. Father from complications from Alzheimer's. Other siblings with diabetes, hypertension. One daughter from esophageal cancer. SOCIAL HISTORY: Patient is an ex-smoker, quit 2002, used to smoke, had a 20 pack-year. Drinks a glass of wine maybe once a month. No drug use. Currently lives at home by herself with one dog. She never traveled outside of the state. Used to work as a direct care staff manager supply. No exposure to asbestos, tuberculosis she is aware of. She is independent of all her daily activities. REVIEW OF SYSTEMS: CONSTITUTIONAL: Denies fevers, chills, rigors, weight changes. HEENT: Denies headaches, lightheadedness, dizziness, blurry vision, difficulty with speech and swallow. Eyes: History of macular degeneration. CARDIOVASCULAR: As above. PULMONARY: As above. GASTROINTESTINAL: Denies hematochezia, melena, or hematemesis, nausea, vomiting , diarrhea, constipation. GENITOURINARY: Positive for status post surgery for vulvar cancer. She has urinary incontinence. She has worsening pain and swelling by her vulvar region. Apparently, there was a discussion for referral to wound care in the past. MUSCULOSKELETAL: No bone, muscle, joint pain. NEUROLOGICAL: No paralysis, paresthesia, headaches. ENDOCRINE: Positive for diabetes and thyroid disease. LYMPHATICS: No lumps, bumps, or swelling anywhere in neck, axilla, or groin. HEMATOLOGY: No abnormal bleeding or bruising. PHYSICAL EXAMINATION: VITAL SIGNS: Blood pressure 148/92, heart rate 110, pulse oximetry 93% on room air, temperature 97.4, respiration rate 18. GENERAL: Patient was sitting in bed, comfortable, no acute distress, alert, awake, oriented times three, pleasant and cooperative, obese appearing. HEENT: Normocephalic, atraumatic. Moist oral mucosa. Lower portion with patient's own teeth, but some missing teeth and upper portion is edentulous. No thrush or lesions appreciated. Eyes: Extraocular movements intact. Pupils equal and reactive to light. NECK: Supple. Large. Could not appreciate jugular venous distention (JVD) or lymphadenopathy secondary to large neck size. CHEST: Symmetric chest rise. No accessory muscle use. Increased AP diameter. Left chest with palpable pacemaker. She does have a lot of excessive tissue to fully appreciate the pacemaker. HEART: Mildly tachycardic, but regular sounding. She has a 2-3 out of 6 systolic murmur in the left second intercostal border. Did not radiate to the carotids. LUNGS: Clear to auscultation bilaterally, but somewhat distant sounding. ABDOMEN: Obese, nontender, nondistended. Could not appreciate organomegaly secondary to body habitus. GENITOURINARY: Her skin appears thinning by her groin region with a foul odor. Appears to have some questionable purulence versus nystatin ointment applied. She is tender to palpation in her groin region. There is some area of redness and swelling. EXTREMITIES: No pedal edema. Pedal pulses present bilaterally. SKIN: She had some abrasion reportedly from her dog scratching her, but no significant area and tenderness. She has some ecchymotic changes as well. NEUROLOGIC: No focal deficits appreciated. Strength 5/5 in all extremities. PSYCHIATRIC: Pleasant, cooperative, talkative. LABORATORY DATA: WBC 16.3, hemoglobin 15.2, hematocrit 46, platelets 311, neutrophils 82.9. Sodium 135, potassium 3.3, chloride 98, carbon dioxide 26, BUN 33, creatinine 1.21, the patient baseline CKD III, fasting glucose 218, lactic acid 2.5, this is improved compared to last outside which was in the 5 range. Calcium 9.2, magnesium 1.8. Liver profile shows alkaline phosphatase 120, CK 97, TRP 2.14. EKG shows sinus tachycardia, ventricular rate of 109 with right bundle branch block. QTc 569. First-degree AV block. Old inferior KS. Urinalysis showed cloudy appearance, 1+ protein, 2+ leukocyte esterase, WBCs 22, RBCs 5, bacteria 2. IMPRESSION AND PLAN: Ms. Talavera is a 76-year-old female who was sent in from primary care provider's (PCP's) office for leukocytosis and elevated lactic acid level. Upon further questioning, the patient admits that she has had episodes of shortness of breath on exertion in the last 2 weeks. 1. Dyspnea on exertion. Etiology unclear. Possible cause includes cardiac versus pulmonary hypertension from her unwilling to have further investigation regarding her obstructive sleep apnea (ABBE) versus infection and/or other. She will be admitted for further workup and monitoring. At this time, she does not appear to be overloaded. Have requested repeat echocardiogram as it appears that the last one she had was 2 years ago. The patient admits to having hypoxic episode where her dog wakes her up. Therefore, the patient will be placed on ABBE protocol. Monitor her closely on telemetry. Trend cardiac enzymes. She is status post pacemaker and her pacemaker reportedly was interrogated last month. 2. Lactic acidosis with leukocytosis. Etiology for this currently unclear. Due to her shortness of breath symptom, we will check a CT chest to further evaluate for possible underlying infectious cause. There were no signs of infectious appreciated on her lung exam. She is morbidly obese and it is difficult to fully assess her lung examination. On examination today, she has very tender and red groin. It is possible this could be also the possible site of infection. The patient will be empirically started on antibiotic coverage. She is allergic to multiple medications. She is now on empirically with Teflaro. Will followup with blood work. Repeat lactic acid and complete blood count (CBC). Culture was not obtained because of diffuse nature of her location, any culture obtained will be likely contaminant. The groin area is recommended to be kept dry and clean. Recommend against giving clobetasol to her groin region as the area is already very thin and it can worsen her skin. 3. Hypokalemia. Likely secondary to diuretic use. Potassium has been repleted. Will repeat level in the morning. Will hold off from giving her standing dose at this time as she had a history of hyperkalemia in the past. 4. Weakness. Etiology unclear. It could be secondary to her underlying infection and/or cardiac, pulmonary disease. Will monitor her closely in the progressive care unit (PCU). Check orthostatic vital signs. Monitor repeat cardiac markers. 5. Chronic kidney disease (CKD). Baseline renal function is 3. We have requested CT with contrast to further evaluate for cause of her underlying infection. She also incidentally was found to have a nodule and CT will also help to pick this up as well. Because of her CKD, the patient will be given an intravenous (IV) fluid bolus tonight to try and help flush out her contrast afterward. 6. Sick sinus syndrome. She is status post pacemaker and pacer was interrogated last month. 7. Diastolic heart failure. Currently appears it is compensated. Echocardiogram will be repeated. Continue current home dose chlorthalidone and Lasix. 8. Suspected ABBE. The patient will be on ABBE protocol and oxygen at nighttime. 9. Type 2 diabetes. She will be placed on insulin sliding scale. 10. Obesity. Body mass index (BMI) 38. Will continue to complicate medical management. 11. History of coronary artery disease (CAD) status post catheterization. She is allergic to aspirin. She is on Plavix. Not on statin or beta luis alberto, reason unclear. 12. Secondary hyperparathyroidism. Follows with Dr. Larose outpatient. She is on calcitriol Sunday-Sunday. 13. Depression/anxiety. Continue Paxil and Wellbutrin. 14. Hypothyroidism. Continue home dose levothyroxine. 15. Hypertensive heart disease. Continue chlorthalidone, Lasix as mentioned. 16. Vulvar cancer. She is status post surgery and follows with Dr. Call every 3 months. 17. Gout. Continue allopurinol. 18. Deep venous thrombosis (DVT) prophylaxis. Sequential compression devices (SCDs), thromboembolism deterrent stockings (TEDS) and heparin. DISPOSITION: Due to the patient's condition, we expect her stay to be greater than two midnights. My preceptor for this patient encounter was Dr. Arielle Arteaga. The preceptor was physically present in the building during the encounter and was fully available as needed. All aspects of the patient interview, examination, medical decision making process, and medical care plan development were reviewed and approved by the preceptor. The preceptor is aware and concurs with the plan as stated in the body of this note and will attest to such by his/her co-signature. MIMI
[2016-07-29 04:25] LABS: BASO % 0.2 % (0.0-1.0); EOS # 0.2 K/mm3 (0.0-0.50); EOS % 1.2 % (0.0-3.0); LARGE UNSTAINED CELL # 0.2 K/mm3 (0.0-0.4); LARGE UNSTAINED CELL % 1.5 % (0.0-4.0); LYMPH # 2.7 K/mm3 (1.5-4.5); LYMPH % 21.7 % (24.0-44.0); MEAN CORPUSCULAR HEMOGLOBIN 29.5 pg (27.0-33.0); MEAN CORPUSCULAR HGB CONC 31.8 g/dl (32.0-36.5); MEAN CORPUSCULAR VOLUME 92.8 fl (80.0-96.0); MONO # 0.6 K/mm3 (0.0-0.8); MONO % 4.7 % (0.0-5.0); NEUTROPHILS # 8.7 K/mm3 (1.8-7.7); NEUTROPHILS % 70.7 % (36.0-66.0); PLATELET COUNT, AUTOMATED 285 k/mm3 (150-450); RED CELL DISTRIBUTION WIDTH 13.9 % (11.5-14.5); WHITE BLOOD COUNT 12.4 K/mm3 (4.0-10.0)
[2016-07-29 04:36] LABS: ALBUMIN 2.9 GM/DL (3.2-5.2); ANION GAP 8 MEQ/L (8-16); BLOOD UREA NITROGEN 27 MG/DL (7-18); CARBON DIOXIDE LEVEL 28 MEQ/L (21-32); CHLORIDE LEVEL 101 MEQ/L (98-107); CREATININE FOR GFR 1.04 MG/DL (0.55-1.02); GLUCOSE, FASTING 166 MG/DL (83-110); MAGNESIUM LEVEL 1.8 MG/DL (1.8-2.4); PHOSPHORUS LEVEL 2.3 MG/DL (2.5-4.9); POTASSIUM SERUM 3.1 MEQ/L (3.5-5.1); SODIUM LEVEL 137 MEQ/L (136-145)
[2016-07-29] MEDS ORDERED: PREVNAR 13 VACCINE SYRINGE (CPT CODE:90670) IM SCH (06:15)
[2016-07-29] MEDS: HEPARIN SOD (PORCINE) 5000 UNITS/ML VIAL SC SCH ×3 (06:40→20:15)
[2016-07-29] MEDS: LEVOTHYROXINE 0.15 MG TAB (150 MCG) PO SCH (06:41)
[2016-07-29] MEDS: CLOPIDOGREL 75 MG TAB PO SCH (08:12)
[2016-07-29] MEDS: FUROSEMIDE 20 MG TAB PO SCH (08:12)
[2016-07-29] MEDS: PARoxetine 20 MG TAB PO SCH (08:12)
[2016-07-29] MEDS: ALLOPURINOL 100 MG TAB PO SCH (08:12)
[2016-07-29] MEDS: HumaLOG INSULIN (NovoLOG) PER UNIT SC SCH ×4 (08:12→20:05)
[2016-07-29] MEDS: PANTOPRAZOLE 40MG TAB (PROTONIX) PO SCH (08:13)
[2016-07-29] MEDS ORDERED: POTASSIUM CHLORIDE 10 MEQ SR TABLET PO ONE (09:00)
[2016-07-29] MEDS: buPROPion 100 MG TAB PO SCH (09:48)
[2016-07-29] MEDS: FLUTICASONE PROP 0.05% NASAL SPRAY 16 GM (FLONASE) SCH (09:49)
[2016-07-29] MEDS: CHLORTHALIDONE 12.5MG PER 1/2 TABLET PO SCH (09:49)
--- NOTE | 2016-07-29 14:39 | IPN ---
DATE: 07/29/2016 SUBJECTIVE: The patient is seen and examined in the room today. The patient stated she is feeling much better than yesterday. The patient has started cleaning out her groin area and was on Nystatin powder and the patient has InterDry between the groin skin folds. The patient stated those help her out significantly. OBJECTIVE: VITAL SIGNS: Temperature 96.9. Pulse 87. Respirations 18. Blood pressure 141/75. Pulse oximetry 97% in room air. GENERAL: No signs of acute distress. Alert and oriented times three. HEENT: Normocephalic, atraumatic. Extraocular movements grossly intact. CARDIOVASCULAR: Positive S1, S2. Positive systolic murmur. Regular rate. LUNGS: Clear to auscultation bilaterally, but distant lung sounds due to body habitus. ABDOMEN: Morbidly obese. Soft. Nontender. Nondistended. : Near the groin area exam, the patient did show some skin maceration, but no foul smell can be appreciated at the time of examination. EXTREMITIES: No edema. No cyanosis. LABORATORY DATA: WBC 12.4, hemoglobin 14.1, hematocrit 44.3 and platelet count is 285. Sodium 137, potassium 3.1, chloride 101, carbon dioxide 28, BUN 27, creatinine 1.04, GFR 55, lactic acid 1.6, fasting glucose 166, calcium 8, phosphorus 2.3, total CK 70, troponin less than 0.02. C-reactive protein 1.86. Albumin 2.9. MICROBIOLOGY: Blood culture pending times two sets. ASSESSMENT: 1. Lactic acidosis. 2. Sick sinus syndrome status post pacemaker. 3. Moderate to severe tricuspid regurgitation. 4. Obstructive sleep apnea. 5. Type 2 diabetes. 6. Diabetic neuropathy. 7. History of vulvar malignancy. 8. Stage III chronic kidney disease. 9. Hypothyroidism. 10. Gout. 11. Hypercholesterolemia. 12. Vitamin D deficiency. 13. Depression. 14. Ventriculoseptal defect. 15. Hypertensive heart disease. 16. History of coronary artery disease. 17. Diastolic congestive heart failure. 18. Gastroesophageal reflux disease. 19. Osteopenia. 20. History of Clostridium difficile colitis. 21. History of Enterococcus endocarditis. 22. Sepsis from UTI and/or groin cellulitis PLAN: The patient is on empiric antibiotic. The patient is on IV support. Her lactic acid and CRP are improving. The patient has acute on chronic kidney injury that is improving with IV fluid. The patient did have significant cardiac history of valvular disease. The patient is better to monitor on the progressive care unit (PCU) and the patient is on obstructive sleep apnea protocol. The patient has thromboembolic deterrent stockings (TEDS), sequential compression device and heparin. MTDD
[2016-07-30] VITALS: BP 157/76
[2016-07-30] MEDS: CEFTAROLINE FOSAMIL 400 MG in D5W MINI-BAG PLUS 50 ML IV SCH ×2 (00:48→12:52)
[2016-07-30 04:00] VITALS: BP 167/83
[2016-07-30 04:54] LABS: BASO % 0.4 % (0.0-1.0); EOS # 0.3 K/mm3 (0.0-0.50); EOS % 3.2 % (0.0-3.0); LARGE UNSTAINED CELL # 0.1 K/mm3 (0.0-0.4); LARGE UNSTAINED CELL % 1.4 % (0.0-4.0); LYMPH # 2.5 K/mm3 (1.5-4.5); MEAN CORPUSCULAR HEMOGLOBIN 29.9 pg (27.0-33.0); MEAN CORPUSCULAR HGB CONC 32.4 g/dl (32.0-36.5); MEAN CORPUSCULAR VOLUME 92.3 fl (80.0-96.0); MONO # 0.4 K/mm3 (0.0-0.8); NEUTROPHILS # 4.9 K/mm3 (1.8-7.7); NEUTROPHILS % 61.1 % (36.0-66.0); PLATELET COUNT, AUTOMATED 241 k/mm3 (150-450); RED CELL DISTRIBUTION WIDTH 13.9 % (11.5-14.5); WHITE BLOOD COUNT 8.1 K/mm3 (4.0-10.0)
[2016-07-30 05:10] LABS: ALBUMIN 2.9 GM/DL (3.2-5.2); ANION GAP 4 MEQ/L (8-16); BLOOD UREA NITROGEN 21 MG/DL (7-18); CALCIUM LEVEL 8.6 MG/DL (8.8-10.2); CARBON DIOXIDE LEVEL 33 MEQ/L (21-32); CHLORIDE LEVEL 101 MEQ/L (98-107); CREATININE FOR GFR 0.95 MG/DL (0.55-1.02); GLOMERULAR FILTRATION RATE > 60.0 (>39); GLUCOSE, FASTING 137 MG/DL (83-110); MAGNESIUM LEVEL 1.9 MG/DL (1.8-2.4); PHOSPHORUS LEVEL 3.4 MG/DL (2.5-4.9); POTASSIUM SERUM 3.9 MEQ/L (3.5-5.1); SODIUM LEVEL 138 MEQ/L (136-145)
[2016-07-30] MEDS: LEVOTHYROXINE 0.15 MG TAB (150 MCG) PO SCH (05:32)
[2016-07-30] MEDS: HEPARIN SOD (PORCINE) 5000 UNITS/ML VIAL SC SCH ×3 (05:32→20:40)
--- NOTE | 2016-07-30 07:50 | ECHO ---
DATE OF PROCEDURE: 07/29/2016 REFERRING PHYSICIAN: Dr. Helene Cabrera INDICATION: Dyspnea. HEIGHT: 62 inches WEIGHT: 210 pounds. 2D MEASUREMENTS: Aortic root - 2.6 cm Left atrium - 4.3 cm Left ventricle diastole - 4.0 cm Ventricular septum - 0.9 cm Posterior wall - 1.15 cm Inferior vena cava - 1.7 cm (with more than 50% respiratory variation). Estimated central venous pressure 5 mmHg. DOPPLER MEASUREMENTS: Aortic valve velocity - 154 cm/s LVOT VTI - 110 cm/s LVOT VTI - 17.9 cm Mitral E velocity - 67.6 cm/s Mitral A velocity - 142 cm/s Mitral deceleration time - 239 ms Very mild tricuspid regurgitation. Estimated right ventricle systolic pressure - 71 mmHg Estimated right atrial pressure - 5 mmHg MITRAL ANNULAR TISSUE DOPPLER: E prime lateral - 6.9 cm/s E prime septal - 2.9 cm/s DESCRIPTION: The rhythm appeared to be sinus and probably ventricular paced, (i.e, P synchronous ventricular paced rhythm). This was a moderately technically difficult echocardiogram. No pericardial effusion. CONCLUSIONS: 1. Normal left ventricle internal dimensions and wall thickness. Normal LV systolic function. LVEF of 70% by visual estimate. Moderately technically difficult for precise endocardial visualization but suspect no regional wall motion abnormalities other than perhaps subtle paradoxical septal motion. 2. Grade 1 LV diastolic dysfunction (impaired relaxation filling pattern). 3. Suggestive of severe elevation of estimated right ventricle systolic pressure (71 mmHg). Central venous pressure estimated to be 5 mmHg. 4. Mild left atrial dilatation. 5. Presence of endocardial right atrial and right ventricle pacemaker leads. 6. Moderately technically difficult echocardiogram.
[2016-07-30 08:00] VITALS: BP 199/97
[2016-07-30] MEDS: NYSTATIN 100,000 UNITS/GM TOPICAL PWD 15 GM TOP SCH ×2 (08:16→21:00)
[2016-07-30] MEDS: FLUTICASONE PROP 0.05% NASAL SPRAY 16 GM (FLONASE) SCH (08:16)
[2016-07-30] MEDS: HumaLOG INSULIN (NovoLOG) PER UNIT SC SCH ×4 (08:16→20:41)
[2016-07-30] MEDS: FUROSEMIDE 20 MG TAB PO SCH (08:17)
[2016-07-30] MEDS: ALLOPURINOL 100 MG TAB PO SCH (08:17)
[2016-07-30] MEDS: PARoxetine 20 MG TAB PO SCH (08:17)
[2016-07-30] MEDS: CHLORTHALIDONE 12.5MG PER 1/2 TABLET PO SCH (08:17)
[2016-07-30] MEDS: PANTOPRAZOLE 40MG TAB (PROTONIX) PO SCH (08:17)
[2016-07-30] MEDS: CLOPIDOGREL 75 MG TAB PO SCH (08:17)
[2016-07-30] MEDS: buPROPion 100 MG TAB PO SCH (08:17)
--- NOTE | 2016-07-30 09:06 | ECGEPIP ---
Stationary ECG Study [facility] - ED Test Date: 2016-07-28 Pat Name: JOSE M FRAUSTO Department: Room: [place] [address] Gender: F Asbestos Worker: violeta : 1940 Requested By: DACIA Sullivan Order Number: [id number] Reading MD: Monica Rosenberg Measurements Intervals [place] Rate: 109 P: 95 WV: 253 QRS: 192 QRSD: 186 T: 27 QT: 421 QTc: 569 Interpretive Statements SINUS TACHYCARDIA WITH FIRST DEGREE AV BLOCK MARKED RIGHT AXIS DEVIATION RIGHT BUNDLE BRANCH BLOCK ANTERIOR MYOCARDIAL INFARCTION, PROBABLE OLD COMPARISON 07/21/16 INFERIOR MYOCARDIAL INFARCTION, PROBABLE OLD COMPARISON 07/21/16 Electronically Signed On 07-30-2016 9:05:43 EDT by Monica Rosenberg
[2016-07-30 14:00] VITALS: BP 158/74
--- NOTE | 2016-07-30 15:13 | IPN ---
DATE: 07/30/2016 SUBJECTIVE: Patient is seen and examined in the room today. Patient stated she is feeling better and patient can notice significant improvement of her condition. During the discussion, patient mentioned that she lives alone and usually her son is not in town to take care of her and now she has difficulty managing her daily activity functions. No overnight events are reported. OBJECTIVE: VITAL SIGNS: Temperature 96, pulse 90, respirations 20, blood pressure 199/97, pulse oximetry 98% in room air. After blood pressure medication in the morning, patient's blood pressure improved to 158/74. GENERAL: No sign of acute distress, alert and oriented times three. HEENT: Normocephalic, atraumatic. Extraocular motors grossly intact. CARDIOVASCULAR: Positive S1, S2, regular rate. Positive systolic murmurs. LUNGS: Clear to auscultation bilaterally. Lungs sounds distant due to body habitus. ABDOMEN: Morbidly obese. Soft, nontender, nondistended. Bowel sounds present. EXTREMITIES: No edema. No sign of cyanosis. LABORATORY DATA: WBC 8.1, hemoglobin 14.3, hematocrit 44.2, platelet count 241. Sodium 138, potassium 3.9, chloride 101, carbon dioxide 33, BUN 21, creatinine 0.95, GFR greater than 60, fasting glucose 137, calcium 8.6, phosphorous 3.4, magnesium 1.9, C-reactive protein 2.11, albumin 2.9. ASSESSMENT AND PLAN: 1. Lactic acidosis. 2. Sick sinus syndrome status post pacemaker. 3. Moderate to severe tricuspid regurgitation. 4. Obstructive sleep apnea. 5. Type 2 diabetes. 6. Diabetic neuropathy. 7. History of vulvar malignancy. 8. Stage IV chronic kidney disease. 9. Hypothyroidism. 10. Gout. 11. Hypercholesterolemia. 12. Vitamin D deficiency. 13. Depression. 14. Ventricular septal defect. 15. Hypertensive heart disease. 16. History of coronary artery disease. 17. Diabetic congestive heart failure. 18. Gastroesophageal reflux disease. 19. Osteopenia. 20. History of Clostridium difficile colitis. 21. History of Enterococcus endocarditis. 22. Sepsis from UTI and/or groin cellulitis Currently patient is on empiric antibiotics. Urine culture is negative. Blood culture is no growth after 24 hours times two sets. Patient is being monitored on telemetry since admission. There is no events reported. Patient will be downgraded to medical/surgical floor. Currently patient shows impairment to take care of herself at home and increased significant difficulty to maintain patient's condition. At this moment, we will consult patient and family services (PFS) for home health nurse application. We will also evaluate if patient may need nursing placement. MIMI
[2016-07-30] MEDS: LEVEMIR (INSULIN DETEMIR) 1 UNITS/0.01ML SC SCH (20:41)
[2016-07-30 23:05] VITALS: BP 155/90
[2016-07-31] MEDS: CEFTAROLINE FOSAMIL 400 MG in D5W MINI-BAG PLUS 50 ML IV SCH ×2 (01:57→12:30)
[2016-07-31] MEDS: HEPARIN SOD (PORCINE) 5000 UNITS/ML VIAL SC SCH ×2 (05:44→14:16)
[2016-07-31] MEDS: LEVOTHYROXINE 0.15 MG TAB (150 MCG) PO SCH (05:44)
[2016-07-31 06:00] VITALS: BP 165/88
[2016-07-31 07:36] LABS: BASO % 0.4 % (0.0-1.0); EOS # 0.2 K/mm3 (0.0-0.50); LARGE UNSTAINED CELL # 0.1 K/mm3 (0.0-0.4); LARGE UNSTAINED CELL % 1.5 % (0.0-4.0); LYMPH % 23.7 % (24.0-44.0); MEAN CORPUSCULAR HEMOGLOBIN 29.2 pg (27.0-33.0); MEAN CORPUSCULAR HGB CONC 31.2 g/dl (32.0-36.5); MEAN CORPUSCULAR VOLUME 93.6 fl (80.0-96.0); MONO # 0.4 K/mm3 (0.0-0.8); MONO % 4.7 % (0.0-5.0); NEUTROPHILS # 5.6 K/mm3 (1.8-7.7); NEUTROPHILS % 66.7 % (36.0-66.0); PLATELET COUNT, AUTOMATED 236 k/mm3 (150-450); RED CELL DISTRIBUTION WIDTH 13.8 % (11.5-14.5); WHITE BLOOD COUNT 8.3 K/mm3 (4.0-10.0)
[2016-07-31 08:05] LABS: ALBUMIN 2.7 GM/DL (3.2-5.2); CALCIUM LEVEL 8.9 MG/DL (8.8-10.2); CREATININE FOR GFR 0.98 MG/DL (0.55-1.02); GLOMERULAR FILTRATION RATE 58.9 (>39); MAGNESIUM LEVEL 2.2 MG/DL (1.8-2.4); PHOSPHORUS LEVEL 3.4 MG/DL (2.5-4.9); POTASSIUM SERUM 3.3 MEQ/L (3.5-5.1)
[2016-07-31] MEDS: CLOPIDOGREL 75 MG TAB PO SCH (08:54)
[2016-07-31] MEDS: CHLORTHALIDONE 12.5MG PER 1/2 TABLET PO SCH (08:54)
[2016-07-31] MEDS: buPROPion 100 MG TAB PO SCH (08:54)
[2016-07-31] MEDS: ALLOPURINOL 100 MG TAB PO SCH (08:54)
[2016-07-31] MEDS: PANTOPRAZOLE 40MG TAB (PROTONIX) PO SCH (08:54)
[2016-07-31] MEDS: PARoxetine 20 MG TAB PO SCH (08:54)
[2016-07-31] MEDS: HumaLOG INSULIN (NovoLOG) PER UNIT SC SCH ×2 (08:55→12:30)
[2016-07-31] MEDS: FUROSEMIDE 20 MG TAB PO SCH (08:55)
[2016-07-31] MEDS ORDERED: PREVNAR 13 VACCINE SYRINGE (CPT CODE:90670) IM ONE (09:00)
[2016-07-31] MEDS ORDERED: CALCITRIOL 0.25 MCG CAP (S0169) PO SCH (09:00)
[2016-07-31] MEDS: FLUTICASONE PROP 0.05% NASAL SPRAY 16 GM (FLONASE) SCH (09:06)
[2016-07-31] MEDS: NYSTATIN 100,000 UNITS/GM TOPICAL PWD 15 GM TOP SCH (09:07)
[2016-07-31] MEDS ORDERED: POTASSIUM CHLORIDE 10 MEQ SR TABLET PO ONE (11:15)
[2016-07-31] MEDS ORDERED: NYST100024 TOP (11:31)
[2016-07-31] MEDS ORDERED: DOXY-278 PO (11:31)
--- NOTE | 2016-07-31 20:37 | DSES ---
DATE OF ADMISSION: 07/28/2016 DATE OF DISCHARGE: 07/31/2016 PRIMARY CARE PROVIDER: Chelle Hubbard MD CONSULTANTS: None. PROCEDURES: None. COMPLICATIONS: None. ADMISSION/DISCHARGE DIAGNOSES: 1. Lactic acidosis. 2. Sick sinus syndrome status post pacemaker. 3. Moderate to severe tricuspid regurgitation. 4. Obstructive sleep apnea. 5. Type 2 diabetes. 6. Diabetic neuropathy. 7. History of vulvar malignancy. 8. Stage IV chronic kidney disease. 9. Hypothyroidism. 10. Gout. 11. Hypercholesterolemia. 12. Vitamin D deficiency. 13. Depression. 14. Ventricular septal defect. 15. Hypertensive heart disease. 16. History of coronary artery disease. 17. Diastolic congestive heart failure. 18. Gastroesophageal reflux disease. 19. Osteopenia. 20. History of Clostridium (C) difficile colitis. 21. History of Enterococcus endocarditis. 22. Sepsis from UTI and/or groin cellulitis HOSPITALIZATION COURSE: Patient is a 76-year-old female who was sent to [facility] from primary care provider for lactic acidosis and persistent leukocytosis. During the diagnostic workup, patient was found to have macerated skin change between the skin folds near the groin area. Patient was started on supportive care for patient's lactic acidosis. Patient's cellulitis/skin maceration near the groin area was cleaned and dried and placed on nystatin powder. Patient also was started on empiric antibiotics for cellulitis. With medical management, patient should continue to improve. Patient's lactic acid came down to normal range within 12 hours. Patient also had continued improvement of leukocytosis within 48 hours. On 07/31/2016, after patient was educated for wound care, patient was determined to be medically stable for discharge, with recommendations to finish the course of antibiotic treatment for patient's cellulitis, and patient should followup with primary care provider regarding her obstructive sleep apnea (ABBE). A home health care referral is also given to the patient. OBJECTIVE: VITAL SIGNS: Temperature 97.6, pulse 80, respirations 16, blood pressure 165/88 , pulse oximetry 96% in room air. LABORATORY DATA: WBC 8.3, hemoglobin 13.5, hematocrit 43.3, platelet count 236. Sodium 139, potassium 3.3, chloride 101, carbon dioxide 33, BUN 19, creatinine 0.98, GFR 58.9, fasting glucose 119, calcium 8.9, phosphorous 3.4, magnesium 2.2 , C-reactive protein 1.12, albumin 2.7. MICROBIOLOGY: Urine culture appears contaminated. Blood cultures negative after 72 hours times two sets. IMAGING STUDIES: CT of the chest without contrast followed by with contrast showed no acute infiltrate. No clinically significant pulmonary nodules. Minimal scarring in the left upper lobe. Emphysematous bleb at the left lower lobe. Enlarged hiatal hernia. DISCHARGE MEDICATIONS: - doxycycline 100 mg by mouth every 12 hours for four tablets - nystatin powder topically for 1 week is supplied - allopurinol 100 mg by mouth daily - bupropion 100 mg by mouth daily - calcium/vitamin D one tablet by mouth twice a day - chlorthalidone 12.5 mg by mouth daily - clobetasol one dose topically twice a day as needed - Plavix 75 mg by mouth daily - Flonase 50 mcg per nasal daily - Lasix 20 mg by mouth daily - Lantus 25 units subcutaneous nightly - Synthroid 150 mcg by mouth daily - nitroglycerin 0.4 mg sublingual as needed for chest pain - pantoprazole 40 mg by mouth daily - paroxetine 20 mg by mouth daily DISCHARGE INSTRUCTIONS: Discontinue lines. Discharge home. Activity as tolerated. Consistent carbohydrate diet as tolerated. Patient should followup with her primary care provider within 1 week and patient should followup with outpatient sleep study for her obstructive sleep apnea (ABBE). DISCHARGE CONDITION: Stable. DISCHARGE TIME: Greater than 30 minutes. MTDD
== END 2016-07-31 15:00 | disposition home health service (06) | DRG 872 ==
LOC: M ED 18:57 → M ED INP 21:49 → M ICU 23:59 → M MSPAV 07-30 11:35 → M MS5PR 07-30 22:47
PROVIDERS: ADMIT Hospitalist; ATTEND Internal Medicine
DX: A41.9 Sepsis, unspecified organism (principal); E87.2 Acidosis; I50.32 Chronic diastolic (congestive) heart failure; I13.0 Hypertensive heart and chronic kidney disease with heart failure and stage 1 through stage 4 chronic kidney disease, or unspecified chronic kidney disease; N25.81 Secondary hyperparathyroidism of renal origin; N18.4 Chronic kidney disease, stage 4 (severe); N17.9 Acute kidney failure, unspecified; N39.0 Urinary tract infection, site not specified; L03.314 Cellulitis of groin; K44.0 Diaphragmatic hernia with obstruction, without gangrene; I49.5 Sick sinus syndrome; G47.33 Obstructive sleep apnea (adult) (pediatric); Z95.0 Presence of cardiac pacemaker; E11.40 Type 2 diabetes mellitus with diabetic neuropathy, unspecified; E55.9 Vitamin D deficiency, unspecified; E78.00 Pure hypercholesterolemia, unspecified; I36.0 Nonrheumatic tricuspid (valve) stenosis; E03.9 Hypothyroidism, unspecified; F32.9 Major depressive disorder, single episode, unspecified; I25.10 Atherosclerotic heart disease of native coronary artery without angina pectoris; K21.9 Gastro-esophageal reflux disease without esophagitis; Z79.899 Other long term (current) drug therapy; Z85.44 Personal history of malignant neoplasm of other female genital organs; Z79.4 Long term (current) use of insulin; Z88.1 Allergy status to other antibiotic agents; Z88.0 Allergy status to penicillin; Z88.2 Allergy status to sulfonamides; Z88.5 Allergy status to narcotic agent; E87.6 Hypokalemia; E66.9 Obesity, unspecified; Z68.38 Body mass index [BMI] 38.0-38.9, adult; F41.9 Anxiety disorder, unspecified; M10.9 Gout, unspecified

== ENCOUNTER → 2016-07-28 | Outpatient (REF) | payer MEDICARE ==
[2016-07-28 14:21] LABS: CREATININE FOR GFR 1.23 MG/DL (0.55-1.02); GLOMERULAR FILTRATION RATE 45.3 (>39); POTASSIUM SERUM 3.7 MEQ/L (3.5-5.1)
[2016-07-28 14:24] LABS: MEAN CORPUSCULAR HGB CONC 32.1 g/dl (32.0-36.5); MEAN CORPUSCULAR VOLUME 93.2 fl (80.0-96.0); RED CELL DISTRIBUTION WIDTH 13.6 % (11.5-14.5); WHITE BLOOD COUNT 14.8 K/mm3 (4.0-10.0)
[2016-07-28 15:07] LABS: EOSINOPHILS 1 % (0-5)
== END ==
LOC: M SFHCLERA 12:05
PROVIDERS: ATTEND Family Medicine
DX: E87.2 Acidosis (principal); E87.5 Hyperkalemia

== ENCOUNTER → 2016-08-11 | Outpatient (REF) | payer MEDICARE ==
[~2016-08-11] MED LIST changes: +DOXY-278 PO; +NYST100024 TOP
[2016-08-11 18:17] LABS: CALCIUM LEVEL 9.3 MG/DL (8.8-10.2); CREATININE FOR GFR 1.07 MG/DL (0.55-1.02); GLOMERULAR FILTRATION RATE 53.2 (>39); POTASSIUM SERUM 4.6 MEQ/L (3.5-5.1)
== END ==
LOC: M SFHCLERA 10:27
PROVIDERS: ATTEND Family Medicine
DX: E87.6 Hypokalemia (principal)
CPT/HCPCS: 80048; G0463

== ENCOUNTER → 2016-08-19 | Outpatient (REF) | payer MEDICARE ==
[2016-08-19 19:26] LABS: CALCIUM LEVEL 8.8 MG/DL (8.8-10.2); CREATININE FOR GFR 0.98 MG/DL (0.55-1.02); GLOMERULAR FILTRATION RATE 58.9 (>39)
== END ==
LOC: M SFHCLERA 10:14
PROVIDERS: ATTEND Family Medicine
DX: E87.6 Hypokalemia (principal)

== ENCOUNTER → 2016-10-18 | Outpatient (CLI) | payer MEDICARE ==
[~2016-10-18] MED LIST changes: +CLOT1CRE TOP; -CLOTR1CR TOP; -NYST100024 TOP; +NYST1POW9 TOP; +PLAV1TAB2; +PLAV1TAB2 PO; -PLAV75TA38; -PLAV75TA38 PO
--- NOTE | 2016-10-18 15:01 | REP ---
Parathyroid nuclear scintigraphy with SPECT: History: Primary hyperparathyroidism. Technique: 25.5 mCi technetium 99m sestamibi is injected. 15 minute and 3 hour delayed planar images are acquired. A SPECT imaging acquisition is acquired as well. Images are displayed rotationally in CINE mode. Scintigraphic findings: Initial 15-minute delayed planar images demonstrate normal salivary and some low level thyroid uptake. 3 hour delayed images show no evidence to suggest a parathyroid adenoma. SPECT imaging is noncontributory. Impression: Negative sestamibi parathyroid nuclear scintigraphy with SPECT imaging. Signed by Dex Rothman MD 10/18/2016 05:03 P
== END ==
LOC: M RAD 08:43
PROVIDERS: ATTEND Internal Medicine Nephrology
DX: E21.0 Primary hyperparathyroidism (principal)
CPT/HCPCS: 78070; 78803; A9500

== ENCOUNTER → 2016-11-07 | Outpatient (REF) | payer MEDICARE ==
[2016-11-07 18:19] LABS: ANION GAP 11 MEQ/L (8-16); BLOOD UREA NITROGEN 22 MG/DL (7-18); CALCIUM LEVEL 9.6 MG/DL (8.8-10.2); CARBON DIOXIDE LEVEL 27 MEQ/L (21-32); CHLORIDE LEVEL 102 MEQ/L (98-107); CREATININE FOR GFR 0.92 MG/DL (0.55-1.02); GLOMERULAR FILTRATION RATE > 60.0 (>39); GLUCOSE, FASTING 128 MG/DL (83-110); POTASSIUM SERUM 4.5 MEQ/L (3.5-5.1); SODIUM LEVEL 140 MEQ/L (136-145)
== END ==
LOC: M SFHCLERA 10:32
PROVIDERS: ATTEND Family Medicine
DX: E11.21 Type 2 diabetes mellitus with diabetic nephropathy (principal); I10 Essential (primary) hypertension; E03.9 Hypothyroidism, unspecified
CPT/HCPCS: 80048; 82043; 83036; 84443; G0463

== ENCOUNTER → 2016-12-28 | Outpatient (CLI) | payer MEDICARE ==
--- NOTE | 2016-12-28 13:28 | REP ---
Left rib series: Four views. History: Acute left-sided thoracic back pain. Comparison study: July 21, 2016. Findings: Multiple views of the left rib cage show no visible rib fracture or bony destructive lesion. A multilead pacemaker is in the heart. There is some pleuroparenchymal fibrosis in the left lung base and there is a suggestion of a hiatal hernia. There are degenerative changes in the thoracic spine. 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 Impression: No acute rib fracture or bony destructive lesion seen. Cardiomegaly with pacemaker. Probable hiatal hernia. Diffuse osteopenia. Signed by Dex Rothman MD 12/28/2016 03:50 P
--- NOTE | 2016-12-28 13:30 | REP ---
Thoracic spine series: Three views. History: Acute left-sided thoracic back pain. Findings: Thoracic vertebral body heights are preserved and alignment is normal. No change in appearance of the thoracic spine on lateral radiograph when compared with the October 12, 2011 prior study. There is minimal degenerative disc disease as before. There is a moderate size hiatal hernia. A pacemaker is seen in the right heart and mild cardiomegaly is observed. Impression: No acute bony abnormality seen. Signed by Dex Rothman MD 12/28/2016 03:51 P
== END ==
LOC: M LRY 12:38
PROVIDERS: ATTEND Family Medicine
DX: M54.6 Pain in thoracic spine (principal); I51.7 Cardiomegaly; Z95.0 Presence of cardiac pacemaker
CPT/HCPCS: 71100; 72072; G0463

== ENCOUNTER → 2017-02-04 | Outpatient (CLI) | payer MEDICARE ==
--- NOTE | 2017-02-05 19:24 | SLEEPCENT ---
DATE OF PROCEDURE: 02/04/2017 ORDERED BY: Alysia Flanagan Nocturnal polysomnography was performed for evaluation of sleep physiology in this patient with a history of excessive somnolence and nonrestorative sleep, comorbidities of coronary artery disease and hypothyroidism. 8 hours and 24 minutes of data were reviewed. There were 402 minutes of sleep identified. Sleep latency was normal at 29 minutes. Rapid eye movement (REM) latency was delayed at 437 minutes. Sleep architecture showed very poor progression with REM sleep being achieved only late in the test. Overall sleep efficiency was 80.9%. EKG showed what appeared to be a paced rhythm with intermittent spontaneous beats. Average heart rate 66 beats per minute. EEG showed reasonably normal waveforms for awake and sleep. There were 438 respiratory events identified of 10 seconds in duration or greater for an apnea-hypopnea index of 65.3. The events were primarily obstructive, not exclusive to sleep stage, more frequent but not exclusive in the supine posture. Arousals from respiratory events occurred 21 times per hour and oxygen desaturations were seen into the 70s. Remaining measures of sleep physiology were normal. IMPRESSION: Severe obstructive sleep apnea syndrome (G47.33). Apnea-hypopnea index of 65.3. RECOMMENDATION: The patient should be encouraged to return to the sleep disorder center at her earliest convenience for pressure therapy. In the interim, alcohol and sedative avoidance should be practiced and caution exercised during the operation of motor vehicles. Copy To: Dr. Hubbard
== END ==
LOC: M SLEEP 20:00
PROVIDERS: ATTEND Nurse Practitioner Adult Health
DX: G47.30 Sleep apnea, unspecified (principal)

== ENCOUNTER → 2017-02-08 | Outpatient (REF) | payer MEDICARE | LOC: M SFHCLERA 12:23 | PROVIDERS: ATTEND Family Medicine | DX: E03.9 Hypothyroidism, unspecified (principal); Z79.899 Other long term (current) drug therapy | CPT/HCPCS: 83036; 84443; 90662; G0008; G0463 ==

== ENCOUNTER → 2017-02-22 | Outpatient (CLI) | payer MEDICARE ==
--- NOTE | 2017-02-22 13:42 | REP ---
Left shoulder and the is stat request: Comparisons are the plain film study of 07/21/[address] dated 07/05 2016. There is an old fracture of the surgical neck of the humerus. The fracture has healed with the humeral head displaced laterally. This is unchanged. There are calcifications superior to the humeral head, as previously, possibly representing calcific tendonitis. Alternatively, these could represent intra-articular calcifications. The acromioclavicular joint is unremarkable. The scapula is unremarkable. Signed by Sal June MD 02/22/2017 01:34 P
== END ==
LOC: M LRY 13:11
PROVIDERS: ATTEND Nurse Practitioner Family
DX: M25.512 Pain in left shoulder (principal)
CPT/HCPCS: 73030; G0463

== ENCOUNTER → 2017-04-26 | Outpatient (CLI) | payer MEDICARE | LOC: M SLEEP 19:25 | DX: G47.33 Obstructive sleep apnea (adult) (pediatric) (principal) | CPT/HCPCS: 95811 ==

== ENCOUNTER → 2017-05-10 | Outpatient (REF) | payer MEDICARE ==
[2017-05-10 17:50] LABS: ESTIMATED AVERAGE GLUCOSE 171 MG/DL (60-110); HEMOGLOBIN A1c 7.6 %
== END ==
LOC: M SFHCLERA 10:07
DX: E11.21 Type 2 diabetes mellitus with diabetic nephropathy (principal)
CPT/HCPCS: 83036

== ENCOUNTER 2017-05-24 17:12 | Inpatient (IN) | payer MEDICARE ==
[2017-05-24 18:30] LABS: BASO % 0.2 % (0.0-1.0); EOS # 0.1 10^3/uL (0.0-0.50); HEMATOCRIT 44.5 % (36.0-47.0); HEMOGLOBIN 14.6 g/dl (12.0-16.0); IMMATURE GRANULOCYTE % 0.4 % (0-3.0); LYMPH # 2.6 10^3/uL (1.5-4.5); LYMPH % 23.4 % (24.0-44.0); MEAN CORPUSCULAR HEMOGLOBIN 30.4 pg (27.0-33.0); MEAN CORPUSCULAR HGB CONC 32.8 g/dl (32.0-36.5); MEAN CORPUSCULAR VOLUME 92.7 fl (80.0-96.0); MONO # 0.8 10^3/uL (0.0-0.8); MONO % 6.6 % (0.0-5.0); NEUTROPHILS # 7.7 10^3/uL (1.8-7.7); NEUTROPHILS % 68.4 % (36.0-66.0); PLATELET COUNT, AUTOMATED 309 10^3/uL (150-450); RED CELL DISTRIBUTION WIDTH 14.1 % (11.5-14.5); WHITE BLOOD COUNT 11.3 10^3/uL (4.0-10.0)
[2017-05-24] MEDS ORDERED: NS 500 ML IV (18:30)
[2017-05-24 18:55] LABS: ALBUMIN 3.2 GM/DL (3.2-5.2); ALKALINE PHOSPHATASE 93 U/L (45-117); ALT/SGPT 23 U/L (12-78); ANION GAP 11 MEQ/L (8-16); AST/SGOT 42 U/L (7-37); BILIRUBIN,DIRECT 0.1 MG/DL (0.0-0.2); BILIRUBIN,TOTAL 0.5 MG/DL (0.2-1.0); BLOOD UREA NITROGEN 29 MG/DL (7-18); CALCIUM LEVEL 8.9 MG/DL (8.8-10.2); CARBON DIOXIDE LEVEL 26 MEQ/L (21-32); CHLORIDE LEVEL 104 MEQ/L (98-107); CPK CREATINE PHOSPHOKINASE 267 U/L (26-192); CREATININE FOR GFR 1.09 MG/DL (0.55-1.30); GLUCOSE, FASTING 168 MG/DL (70-100); MAGNESIUM LEVEL 1.6 MG/DL (1.8-2.4); POTASSIUM SERUM 3.7 MEQ/L (3.5-5.1); SODIUM LEVEL 141 MEQ/L (136-145); TOTAL PROTEIN 7.2 GM/DL (6.4-8.2); TROPONIN I < 0.02 NG/ML (< 0.10)
[2017-05-24 19:01] LABS: CK-MB VALUE MASS 4.1 NG/ML (0.0-3.6); MB/CK RELATIVE INDEX 1.53 (< OR =4)
[2017-05-24] MEDS ORDERED: CLOTRIMAZOLE 1% TOPICAL CREAM 30GM TOP (22:15)
[2017-05-24] MEDS ORDERED: COLCHICINE 0.6 MG TAB PO (22:15)
[2017-05-24] MEDS ORDERED: NYSTATIN 100,000 UNITS/GM TOPICAL PWD 15 GM TOP (22:15)
[2017-05-24 23:42] LABS: BEDSIDE GLUCOSE 212 MG/DL (83-110)
[2017-05-25] MEDS: LEVEMIR (INSULIN DETEMIR) 1 UNITS/0.01ML SC ×2 (00:51→20:54)
[2017-05-25] MEDS: LEVOTHYROXINE 150MCG TABLET (0.15MG) PO (07:04)
[2017-05-25 08:05] LABS: HEMATOCRIT 46.3 % (36.0-47.0); HEMOGLOBIN 14.6 g/dl (12.0-16.0); MEAN CORPUSCULAR HEMOGLOBIN 30.3 pg (27.0-33.0); MEAN CORPUSCULAR HGB CONC 31.5 g/dl (32.0-36.5); MEAN CORPUSCULAR VOLUME 96.1 fl (80.0-96.0); PLATELET COUNT, AUTOMATED 281 10^3/uL (150-450); RED BLOOD COUNT 4.82 10^6/uL (4.00-5.40); RED CELL DISTRIBUTION WIDTH 14.1 % (11.5-14.5); WHITE BLOOD COUNT 9.4 10^3/uL (4.0-10.0)
[2017-05-25 08:26] LABS: ALBUMIN 3.3 GM/DL (3.2-5.2); ALBUMIN/GLOBULIN RATIO 0.97 (1.00-1.93); ALKALINE PHOSPHATASE 91 U/L (45-117); ALT/SGPT 23 U/L (12-78); ANION GAP 9 MEQ/L (8-16); AST/SGOT 39 U/L (7-37); BILIRUBIN,TOTAL 0.7 MG/DL (0.2-1.0); BLOOD UREA NITROGEN 28 MG/DL (7-18); C REACTIVE PROTEIN QUANTITATIV 0.99 MG/DL (0.00-0.30); CARBON DIOXIDE LEVEL 32 MEQ/L (21-32); CHLORIDE LEVEL 101 MEQ/L (98-107); CREATININE FOR GFR 0.96 MG/DL (0.55-1.30); GLOMERULAR FILTRATION RATE > 60.0 (>39); GLUCOSE, FASTING 139 MG/DL (70-100); POTASSIUM SERUM 4.2 MEQ/L (3.5-5.1); SODIUM LEVEL 142 MEQ/L (136-145); TOTAL PROTEIN 6.7 GM/DL (6.4-8.2); TROPONIN I < 0.02 NG/ML (< 0.10)
[2017-05-25 08:34] LABS: ERYTHROCYTE SEDIMENTATION RATE 13 mm/hr (0-30)
[2017-05-25] MEDS: MAG SULF 1GM/100ML (MAG RUN) 1 GM in APPROPRIATE DILUENT 1 EA IV ×2 (08:38→09:00)
[2017-05-25] MEDS: PANTOPRAZOLE 40MG TAB (PROTONIX) PO (08:39)
[2017-05-25] MEDS: buPROPion (WELLBUTRIN SR) 100 MG SR TAB PO (08:39)
[2017-05-25] MEDS: PARoxetine 20 MG TAB PO (08:39)
[2017-05-25] MEDS: ENOXAPARIN 40 MG/0.4 ML SYRINGE (J1650) SC (08:39)
[2017-05-25] MEDS: CHLORTHALIDONE 25 MG TAB PO (08:39)
[2017-05-25] MEDS: ALLOPURINOL 100 MG TAB PO (08:39)
[2017-05-25] MEDS: CLOPIDOGREL 75 MG TAB PO (08:39)
[2017-05-26 05:38] LABS: HEMATOCRIT 40.7 % (36.0-47.0); HEMOGLOBIN 13.1 g/dl (12.0-16.0); MEAN CORPUSCULAR HEMOGLOBIN 30.8 pg (27.0-33.0); MEAN CORPUSCULAR HGB CONC 32.2 g/dl (32.0-36.5); MEAN CORPUSCULAR VOLUME 95.5 fl (80.0-96.0); PLATELET COUNT, AUTOMATED 210 10^3/uL (150-450); RED BLOOD COUNT 4.26 10^6/uL (4.00-5.40); RED CELL DISTRIBUTION WIDTH 14.2 % (11.5-14.5); WHITE BLOOD COUNT 8.9 10^3/uL (4.0-10.0)
[2017-05-26] MEDS: LEVOTHYROXINE 150MCG TABLET (0.15MG) PO (05:55)
[2017-05-26] MEDS: ACETAMINOPHEN TAB 650MG DOSE (2X325MG) PO (06:00)
[2017-05-26 06:06] LABS: ANION GAP 9 MEQ/L (8-16); BLOOD UREA NITROGEN 29 MG/DL (7-18); CALCIUM LEVEL 8.9 MG/DL (8.8-10.2); CARBON DIOXIDE LEVEL 30 MEQ/L (21-32); CHLORIDE LEVEL 101 MEQ/L (98-107); CPK CREATINE PHOSPHOKINASE 113 U/L (26-192); CREATININE FOR GFR 0.81 MG/DL (0.55-1.30); GLOMERULAR FILTRATION RATE > 60.0 (>39); GLUCOSE, FASTING 178 MG/DL (70-100); POTASSIUM SERUM 3.6 MEQ/L (3.5-5.1); SODIUM LEVEL 140 MEQ/L (136-145)
[2017-05-26] MEDS: CHLORTHALIDONE 25 MG TAB PO (08:36)
[2017-05-26] MEDS: ENOXAPARIN 40 MG/0.4 ML SYRINGE (J1650) SC (08:36)
[2017-05-26] MEDS: PANTOPRAZOLE 40MG TAB (PROTONIX) PO (08:37)
[2017-05-26] MEDS: CLOPIDOGREL 75 MG TAB PO (08:37)
[2017-05-26] MEDS: PARoxetine 20 MG TAB PO (08:37)
[2017-05-26] MEDS: ALLOPURINOL 100 MG TAB PO (08:37)
[2017-05-26] MEDS: buPROPion (WELLBUTRIN SR) 100 MG SR TAB PO (08:37)
[2017-05-26 16:26] LABS: BEDSIDE GLUCOSE 144 MG/DL (83-110)
[2017-05-26 16:55] LABS: BEDSIDE GLUCOSE 192 MG/DL (83-110)
[2017-05-26] MEDS: LEVEMIR (INSULIN DETEMIR) 1 UNITS/0.01ML SC (20:50)
[2017-05-27 05:44] LABS: HEMATOCRIT 45.1 % (36.0-47.0); HEMOGLOBIN 14.5 g/dl (12.0-16.0); MEAN CORPUSCULAR HEMOGLOBIN 30.2 pg (27.0-33.0); MEAN CORPUSCULAR HGB CONC 32.2 g/dl (32.0-36.5); PLATELET COUNT, AUTOMATED 238 10^3/uL (150-450); WHITE BLOOD COUNT 9.8 10^3/uL (4.0-10.0)
[2017-05-27] MEDS: LEVOTHYROXINE 150MCG TABLET (0.15MG) PO (05:45)
[2017-05-27 06:19] LABS: ANION GAP 6 MEQ/L (8-16); BLOOD UREA NITROGEN 25 MG/DL (7-18); CARBON DIOXIDE LEVEL 29 MEQ/L (21-32); CHLORIDE LEVEL 101 MEQ/L (98-107); CREATININE FOR GFR 0.86 MG/DL (0.55-1.30); GLOMERULAR FILTRATION RATE > 60.0 (>39); GLUCOSE, FASTING 177 MG/DL (70-100); POTASSIUM SERUM 3.9 MEQ/L (3.5-5.1); SODIUM LEVEL 136 MEQ/L (136-145)
[2017-05-27] MEDS: PARoxetine 20 MG TAB PO (09:38)
[2017-05-27] MEDS: CHLORTHALIDONE 25 MG TAB PO (09:38)
[2017-05-27] MEDS: CLOPIDOGREL 75 MG TAB PO (09:38)
[2017-05-27] MEDS: ALLOPURINOL 100 MG TAB PO (09:38)
[2017-05-27] MEDS: PANTOPRAZOLE 40MG TAB (PROTONIX) PO (09:38)
[2017-05-27] MEDS: ENOXAPARIN 40 MG/0.4 ML SYRINGE (J1650) SC (09:39)
[2017-05-27] MEDS: buPROPion (WELLBUTRIN SR) 100 MG SR TAB PO (09:39)
[2017-05-27] MEDS: LEVEMIR (INSULIN DETEMIR) 1 UNITS/0.01ML SC (20:15)
[2017-05-28] MEDS: LEVOTHYROXINE 150MCG TABLET (0.15MG) PO (05:55)
[2017-05-28 06:03] LABS: HEMATOCRIT 42.1 % (36.0-47.0); HEMOGLOBIN 13.7 g/dl (12.0-16.0); MEAN CORPUSCULAR HEMOGLOBIN 30.9 pg (27.0-33.0); MEAN CORPUSCULAR HGB CONC 32.5 g/dl (32.0-36.5); MEAN CORPUSCULAR VOLUME 94.8 fl (80.0-96.0); PLATELET COUNT, AUTOMATED 209 10^3/uL (150-450); RED BLOOD COUNT 4.44 10^6/uL (4.00-5.40); RED CELL DISTRIBUTION WIDTH 13.9 % (11.5-14.5); WHITE BLOOD COUNT 8.1 10^3/uL (4.0-10.0)
[2017-05-28 06:24] LABS: ANION GAP 9 MEQ/L (8-16); BLOOD UREA NITROGEN 22 MG/DL (7-18); CALCIUM LEVEL 8.8 MG/DL (8.8-10.2); CARBON DIOXIDE LEVEL 28 MEQ/L (21-32); CHLORIDE LEVEL 101 MEQ/L (98-107); CREATININE FOR GFR 0.74 MG/DL (0.55-1.30); GLOMERULAR FILTRATION RATE > 60.0 (>39); GLUCOSE, FASTING 155 MG/DL (70-100); POTASSIUM SERUM 3.6 MEQ/L (3.5-5.1); SODIUM LEVEL 138 MEQ/L (136-145)
[2017-05-28] MEDS: ENOXAPARIN 40 MG/0.4 ML SYRINGE (J1650) SC (09:15)
[2017-05-28] MEDS: PANTOPRAZOLE 40MG TAB (PROTONIX) PO (09:15)
[2017-05-28] MEDS: buPROPion (WELLBUTRIN SR) 100 MG SR TAB PO (09:15)
[2017-05-28] MEDS: ALLOPURINOL 100 MG TAB PO (09:15)
[2017-05-28] MEDS: CLOPIDOGREL 75 MG TAB PO (09:15)
[2017-05-28] MEDS: PARoxetine 20 MG TAB PO (09:15)
[2017-05-28] MEDS: CHLORTHALIDONE 25 MG TAB PO (09:16)
[2017-05-28 12:09] LABS: BEDSIDE GLUCOSE 161 MG/DL (83-110)
[2017-05-28 16:45] LABS: BEDSIDE GLUCOSE 241 MG/DL (83-110)
[2017-05-28 20:27] LABS: BEDSIDE GLUCOSE 215 MG/DL (83-110)
[2017-05-28] MEDS: LEVEMIR (INSULIN DETEMIR) 1 UNITS/0.01ML SC (20:47)
[2017-05-28] MEDS: ACETAMINOPHEN TAB 650MG DOSE (2X325MG) PO (20:47)
[2017-05-29] MEDS: LEVOTHYROXINE 150MCG TABLET (0.15MG) PO (05:40)
[2017-05-29 06:25] LABS: BEDSIDE GLUCOSE 192 MG/DL (83-110)
[2017-05-29 06:28] LABS: HEMATOCRIT 43.8 % (36.0-47.0); HEMOGLOBIN 14.2 g/dl (12.0-16.0); MEAN CORPUSCULAR HEMOGLOBIN 30.5 pg (27.0-33.0); MEAN CORPUSCULAR HGB CONC 32.4 g/dl (32.0-36.5); MEAN CORPUSCULAR VOLUME 94.2 fl (80.0-96.0); PLATELET COUNT, AUTOMATED 227 10^3/uL (150-450); RED BLOOD COUNT 4.65 10^6/uL (4.00-5.40); RED CELL DISTRIBUTION WIDTH 13.9 % (11.5-14.5); WHITE BLOOD COUNT 6.8 10^3/uL (4.0-10.0)
[2017-05-29 06:43] LABS: ANION GAP 10 MEQ/L (8-16); BLOOD UREA NITROGEN 22 MG/DL (7-18); CALCIUM LEVEL 8.4 MG/DL (8.8-10.2); CARBON DIOXIDE LEVEL 29 MEQ/L (21-32); CHLORIDE LEVEL 102 MEQ/L (98-107); CREATININE FOR GFR 0.82 MG/DL (0.55-1.30); GLOMERULAR FILTRATION RATE > 60.0 (>39); GLUCOSE, FASTING 211 MG/DL (70-100); POTASSIUM SERUM 3.7 MEQ/L (3.5-5.1); SODIUM LEVEL 141 MEQ/L (136-145)
[2017-05-29] MEDS: buPROPion (WELLBUTRIN SR) 100 MG SR TAB PO (08:45)
[2017-05-29] MEDS: ENOXAPARIN 40 MG/0.4 ML SYRINGE (J1650) SC (08:45)
[2017-05-29] MEDS: CHLORTHALIDONE 25 MG TAB PO (08:46)
[2017-05-29] MEDS: CLOPIDOGREL 75 MG TAB PO (08:46)
[2017-05-29] MEDS: PANTOPRAZOLE 40MG TAB (PROTONIX) PO (08:46)
[2017-05-29] MEDS: PARoxetine 20 MG TAB PO (08:46)
[2017-05-29] MEDS: ALLOPURINOL 100 MG TAB PO (08:46)
[2017-05-29 17:18] LABS: BEDSIDE GLUCOSE 160 MG/DL (83-110)
[2017-05-29] MEDS: LEVEMIR (INSULIN DETEMIR) 1 UNITS/0.01ML SC (20:49)
[2017-05-29] MEDS: ACETAMINOPHEN TAB 650MG DOSE (2X325MG) PO (20:50)
[2017-05-30] MEDS: ACETAMINOPHEN TAB 650MG DOSE (2X325MG) PO ×2 (01:59→16:36)
[2017-05-30] MEDS: LEVOTHYROXINE 150MCG TABLET (0.15MG) PO (05:33)
[2017-05-30 06:16] LABS: HEMATOCRIT 44.3 % (36.0-47.0); HEMOGLOBIN 14.2 g/dl (12.0-16.0); MEAN CORPUSCULAR HEMOGLOBIN 30.5 pg (27.0-33.0); MEAN CORPUSCULAR HGB CONC 32.1 g/dl (32.0-36.5); MEAN CORPUSCULAR VOLUME 95.3 fl (80.0-96.0); PLATELET COUNT, AUTOMATED 222 10^3/uL (150-450); RED BLOOD COUNT 4.65 10^6/uL (4.00-5.40); WHITE BLOOD COUNT 7.9 10^3/uL (4.0-10.0)
[2017-05-30 06:36] LABS: ANION GAP 9 MEQ/L (8-16); BLOOD UREA NITROGEN 25 MG/DL (7-18); CALCIUM LEVEL 8.7 MG/DL (8.8-10.2); CARBON DIOXIDE LEVEL 28 MEQ/L (21-32); CHLORIDE LEVEL 101 MEQ/L (98-107); CREATININE FOR GFR 0.85 MG/DL (0.55-1.30); GLOMERULAR FILTRATION RATE > 60.0 (>39); GLUCOSE, FASTING 180 MG/DL (70-100); POTASSIUM SERUM 4.1 MEQ/L (3.5-5.1); SODIUM LEVEL 138 MEQ/L (136-145)
[2017-05-30] MEDS: PANTOPRAZOLE 40MG TAB (PROTONIX) PO (09:56)
[2017-05-30] MEDS: buPROPion (WELLBUTRIN SR) 100 MG SR TAB PO (09:56)
[2017-05-30] MEDS: ALLOPURINOL 100 MG TAB PO (09:56)
[2017-05-30] MEDS: CHLORTHALIDONE 25 MG TAB PO (09:56)
[2017-05-30] MEDS: PARoxetine 20 MG TAB PO (09:56)
[2017-05-30] MEDS: CLOPIDOGREL 75 MG TAB PO (09:57)
[2017-05-30] MEDS: ENOXAPARIN 40 MG/0.4 ML SYRINGE (J1650) SC (09:58)
[2017-05-30] MEDS: LEVEMIR (INSULIN DETEMIR) 1 UNITS/0.01ML SC (20:56)
[2017-05-30 21:30] LABS: BEDSIDE GLUCOSE 233 MG/DL (83-110)
[2017-05-31] MEDS: LEVOTHYROXINE 150MCG TABLET (0.15MG) PO (05:43)
[2017-05-31 06:15] LABS: BEDSIDE GLUCOSE 151 MG/DL (83-110)
[2017-05-31] MEDS: buPROPion (WELLBUTRIN SR) 100 MG SR TAB PO (09:00)
[2017-05-31] MEDS: CLOPIDOGREL 75 MG TAB PO (09:00)
[2017-05-31] MEDS: PARoxetine 20 MG TAB PO (09:00)
[2017-05-31] MEDS: PANTOPRAZOLE 40MG TAB (PROTONIX) PO (09:01)
[2017-05-31] MEDS: ALLOPURINOL 100 MG TAB PO (09:01)
[2017-05-31] MEDS: CHLORTHALIDONE 25 MG TAB PO (09:01)
[2017-05-31] MEDS: ENOXAPARIN 40 MG/0.4 ML SYRINGE (J1650) SC (09:02)
[2017-05-31] MEDS: ACETAMINOPHEN TAB 650MG DOSE (2X325MG) PO ×2 (09:05→18:19)
[2017-05-31 18:12] LABS: BEDSIDE GLUCOSE 195 MG/DL (83-110)
[2017-05-31 20:55] LABS: BEDSIDE GLUCOSE 269 MG/DL (83-110)
[2017-05-31] MEDS: LEVEMIR (INSULIN DETEMIR) 1 UNITS/0.01ML SC (21:17)
[2017-06-01] MEDS: LEVOTHYROXINE 150MCG TABLET (0.15MG) PO (05:24)
[2017-06-01] MEDS: buPROPion (WELLBUTRIN SR) 100 MG SR TAB PO (10:15)
[2017-06-01] MEDS: CLOPIDOGREL 75 MG TAB PO (10:15)
[2017-06-01] MEDS: ENOXAPARIN 40 MG/0.4 ML SYRINGE (J1650) SC (10:15)
[2017-06-01] MEDS: CHLORTHALIDONE 25 MG TAB PO (10:16)
[2017-06-01] MEDS: PARoxetine 20 MG TAB PO (10:16)
[2017-06-01] MEDS: PANTOPRAZOLE 40MG TAB (PROTONIX) PO (10:16)
[2017-06-01] MEDS: ALLOPURINOL 100 MG TAB PO (10:16)
[2017-06-01 19:29] LABS: BEDSIDE GLUCOSE 226 MG/DL (83-110)
[2017-06-01] MEDS: LEVEMIR (INSULIN DETEMIR) 1 UNITS/0.01ML SC (20:11)
[2017-06-01 20:44] LABS: BEDSIDE GLUCOSE 230 MG/DL (83-110)
[2017-06-02] MEDS: LEVOTHYROXINE 150MCG TABLET (0.15MG) PO (06:19)
[2017-06-02 06:23] LABS: BEDSIDE GLUCOSE 216 MG/DL (83-110)
[2017-06-02] MEDS: PARoxetine 20 MG TAB PO (10:29)
[2017-06-02] MEDS: CHLORTHALIDONE 25 MG TAB PO (10:29)
[2017-06-02] MEDS: PANTOPRAZOLE 40MG TAB (PROTONIX) PO (10:29)
[2017-06-02] MEDS: ALLOPURINOL 100 MG TAB PO (10:29)
[2017-06-02] MEDS: CLOPIDOGREL 75 MG TAB PO (10:29)
[2017-06-02] MEDS: ENOXAPARIN 40 MG/0.4 ML SYRINGE (J1650) SC (10:30)
[2017-06-02] MEDS: buPROPion (WELLBUTRIN SR) 100 MG SR TAB PO (10:53)
[2017-06-02 19:24] LABS: BEDSIDE GLUCOSE 244 MG/DL (83-110)
[2017-06-02 21:08] LABS: BEDSIDE GLUCOSE 185 MG/DL (83-110)
[2017-06-02] MEDS: LEVEMIR (INSULIN DETEMIR) 1 UNITS/0.01ML SC (21:24)
[2017-06-03] MEDS: LEVOTHYROXINE 150MCG TABLET (0.15MG) PO (05:33)
[2017-06-03 07:05] LABS: BEDSIDE GLUCOSE 154 MG/DL (83-110)
[2017-06-03] MEDS: CLOPIDOGREL 75 MG TAB PO (09:15)
[2017-06-03] MEDS: PANTOPRAZOLE 40MG TAB (PROTONIX) PO (09:15)
[2017-06-03] MEDS: ALLOPURINOL 100 MG TAB PO (09:15)
[2017-06-03] MEDS: buPROPion (WELLBUTRIN SR) 100 MG SR TAB PO (09:15)
[2017-06-03] MEDS: PARoxetine 20 MG TAB PO (09:15)
[2017-06-03] MEDS: CHLORTHALIDONE 25 MG TAB PO (09:15)
[2017-06-03] MEDS: ENOXAPARIN 40 MG/0.4 ML SYRINGE (J1650) SC (09:16)
[2017-06-03] MEDS: ACETAMINOPHEN TAB 650MG DOSE (2X325MG) PO ×2 (17:46→22:16)
[2017-06-03 20:15] LABS: BEDSIDE GLUCOSE 229 MG/DL (83-110)
[2017-06-03] MEDS: LEVEMIR (INSULIN DETEMIR) 1 UNITS/0.01ML SC (20:32)
[2017-06-04] MEDS: ACETAMINOPHEN TAB 650MG DOSE (2X325MG) PO ×2 (02:17→10:06)
[2017-06-04] MEDS: LEVOTHYROXINE 150MCG TABLET (0.15MG) PO (05:53)
[2017-06-04 06:43] LABS: BEDSIDE GLUCOSE 162 MG/DL (83-110)
[2017-06-04] MEDS: ENOXAPARIN 40 MG/0.4 ML SYRINGE (J1650) SC (10:02)
[2017-06-04] MEDS: ALLOPURINOL 100 MG TAB PO (10:02)
[2017-06-04] MEDS: PARoxetine 20 MG TAB PO (10:02)
[2017-06-04] MEDS: PANTOPRAZOLE 40MG TAB (PROTONIX) PO (10:02)
[2017-06-04] MEDS: CHLORTHALIDONE 25 MG TAB PO (10:07)
[2017-06-04] MEDS: buPROPion (WELLBUTRIN SR) 100 MG SR TAB PO (10:07)
[2017-06-04] MEDS: CLOPIDOGREL 75 MG TAB PO (10:08)
== END 2017-06-04 13:58 | disposition home health service (06) | DRG 92 ==
LOC: M ED 17:12 → M ED INP 22:13 → M MSPAV 23:15
DX: R29.6 Repeated falls (principal); Z68.41 Body mass index [BMI] 40.0-44.9, adult; M62.82 Rhabdomyolysis; E66.01 Morbid (severe) obesity due to excess calories; E11.9 Type 2 diabetes mellitus without complications; I10 Essential (primary) hypertension; E83.42 Hypomagnesemia; G47.33 Obstructive sleep apnea (adult) (pediatric); S92.902D Unspecified fracture of left foot, subsequent encounter for fracture with routine healing; F41.9 Anxiety disorder, unspecified; M10.9 Gout, unspecified; I49.5 Sick sinus syndrome; E03.9 Hypothyroidism, unspecified; Z90.49 Acquired absence of other specified parts of digestive tract; Z90.710 Acquired absence of both cervix and uterus; Z85.44 Personal history of malignant neoplasm of other female genital organs; Z88.0 Allergy status to penicillin; Z88.2 Allergy status to sulfonamides; Z88.1 Allergy status to other antibiotic agents; Z88.5 Allergy status to narcotic agent; Z95.0 Presence of cardiac pacemaker; Z87.891 Personal history of nicotine dependence; X58.XXXD Exposure to other specified factors, subsequent encounter; Y93.9 Activity, unspecified

== ENCOUNTER → 2017-09-28 | Outpatient (CLI) | payer MEDICARE ==
[2017-09-28 11:31] LABS: CHOLESTEROL LEVEL 339 MG/DL (<200); CHOLESTEROL RISK RATIO 6.647 (<5); HDL CHOLESTEROL 51 MG/DL (>40); LDL CHOLESTEROL 246.2 MG/DL (<100); NON-HDL-C 288 MG/DL; TRIGLYCERIDES LEVEL 209 MG/DL (<150)
[2017-09-28 11:34] LABS: MALB URINE SIEMENS 75.1 MG/L
[2017-09-28 11:42] LABS: ESTIMATED AVERAGE GLUCOSE 177 MG/DL (60-110); HEMOGLOBIN A1c 7.8 %
== END ==
LOC: M LAB 09:18
DX: E11.21 Type 2 diabetes mellitus with diabetic nephropathy (principal); E03.9 Hypothyroidism, unspecified
CPT/HCPCS: 84443

== ENCOUNTER 2018-01-28 09:23 | Outpatient (RCR) | payer MEDICARE | END 2018-02-13 | LOC: M PT 09:23 | DX: Z47.89 Encounter for other orthopedic aftercare (principal); M19.012 Primary osteoarthritis, left shoulder | CPT/HCPCS: 97110 ==

== ENCOUNTER 2018-02-18 10:11 | Outpatient (RCR) | payer MEDICARE | END 2018-03-15 | LOC: M PT 10:11 | DX: M19.012 Primary osteoarthritis, left shoulder (principal); M54.5 Low back pain; M16.0 Bilateral primary osteoarthritis of hip | CPT/HCPCS: 97110 ==

== ENCOUNTER 2018-03-25 10:11 | Outpatient (RCR) | payer MEDICARE ==
[~2018-03-25 10:11] MED LIST changes: +CHLO25TA PO; +COLC1TAB13 PO; -DOXY-278 PO; +DOXY-350 PO; +ICAPCAP PO; +METO1TAB32 PO; +METO1TAB7 PO; +NITR4TASL SL; -PANT40TA2; -PANT40TA2 PO; +PANT40TA3; +PANT40TA3 PO; +PATIENT COMMENT; +REFR1DRO8 OU; +TYLE650T35 PO; +WELL100T2 PO; +[UNRECOGNIZED DRUG - OTHER] TOP
== END 2018-04-15 ==
LOC: M PT 10:11
PROVIDERS: ATTEND Physician Assistant Surgical
DX: Z47.89 Encounter for other orthopedic aftercare (principal); M19.012 Primary osteoarthritis, left shoulder; M54.5 Low back pain; M16.0 Bilateral primary osteoarthritis of hip

== ENCOUNTER → 2018-04-10 | Outpatient (CLI) | payer MEDICARE ==
--- NOTE | 2018-04-10 15:54 | REP ---
Digital diagnostic bilateral mammography with CAD and focused right breast sonography: History: Right breast pain times 10 days. Comparison mammography is reviewed from July 27, 2016 and December 18, 2014 as well as December 17, 2013. Mammographic findings: Scattered fibroglandular densities are seen bilaterally in a pattern which is unchanged. There are numerous benign secretory calcifications again noted bilaterally as well. There is no neodensity, architectural distortion, or microcalcification on either side. No suspicious abnormality is noted in the lateral aspect of the right breast. No worrisome skin change is seen. Sonographic findings: The right lateral breast is scanned from 6 o'clock to 9 o'clock in the area of pain. Heterogeneous fibroglandular background echotexture is seen. No sonographically suspicious feature. No mass, architectural distortion or acoustic shadowing is seen. Impression: BIRADS category II benign bilateral breast imaging. Clinical follow-up is advised. Screening mammography recommended 1 year. This mammogram was interpreted with the aid of an FDA-approved computer-aided detection system. The patient states she had a clinical breast exam in March 2018. The patient letter being requested is m2 . Electronically Signed by Dex Rothman MD 04/10/2018 04:00 P
== END ==
LOC: M RAD 14:10
PROVIDERS: ATTEND Family Medicine
DX: N64.4 Mastodynia (principal)

== ENCOUNTER → 2018-05-30 | Outpatient (CLI) | payer MEDICARE ==
[2018-05-30 13:36] LABS: HEMATOCRIT 47.2 % (36.0-47.0); MEAN CORPUSCULAR HEMOGLOBIN 31.8 pg (27.0-33.0); MEAN CORPUSCULAR HGB CONC 31.8 g/dl (32.0-36.5); PLATELET COUNT, AUTOMATED 248 10^3/uL (150-450); RED BLOOD COUNT 4.72 10^6/uL (4.00-5.40)
[2018-05-30 13:55] LABS: ALBUMIN 3.6 GM/DL (3.2-5.2); BILIRUBIN,TOTAL 0.6 MG/DL (0.2-1.0); CALCIUM LEVEL 8.8 MG/DL (8.8-10.2); CHOLESTEROL RISK RATIO 3.869 (<5); CREATININE FOR GFR 0.98 MG/DL (0.55-1.30); FREE T4 0.95 NG/DL (0.76-1.46); GLOMERULAR FILTRATION RATE 58.6 (>39); THYROID STIMULATING HORMONE 11.5 uIU/ML (0.358-3.740); TOTAL PROTEIN 6.8 GM/DL (6.4-8.2)
[2018-05-30 14:17] LABS: HEMOGLOBIN A1c 7.9 %
== END ==
LOC: M WUC 09:05
PROVIDERS: ATTEND Physician Assistant
DX: E78.2 Mixed hyperlipidemia (principal); E03.9 Hypothyroidism, unspecified; N18.3 Chronic kidney disease, stage 3 (moderate)